=== PATIENT | male | born 1935 | race American Indian/Alaskan Native ===

== ENCOUNTER 2016-05-19 00:53 | Inpatient (IN) | payer MEDICARE ==
[2016-05-19] MEDS ORDERED: DUONEB 0.5 MG-3 MG/3 ML SOLN IH ONE (01:42)
[2016-05-19] MEDS ORDERED: BABY ASPIRIN PO ONE (01:45)
--- NOTE | 2016-05-19 01:45 | Emergency Department Report ---
HPI - General Chief Complaint: Dyspnea/Respdistress Time Seen by Provider: 05/19/16 01:22 - HPI HPI: The patient is a 80-year-old male with a significant history of asthma, CHF, and chronic A. fib, who presents for evaluation of dyspnea. The patient reports 3 days of progressive dyspnea, constant and severe for the past 12 hours , exacerbated with attempting exertion. The patient also reports associated mild nonproductive cough for the past couple of days. The patient denies fever , pressure-like chest pain, syncope, hemoptysis, palpitations, rash, unilateral leg swelling, recent immobilization. Per EMS the patient was found was seen to have low oxygen saturation on pulse oximetry. ED Past Medical Hx - Past Medical History Previous Medical History?: Yes Hx Hypertension: Yes Hx Congestive Heart Failure: Yes Hx Arthritis: Yes Additional medical history: "heart condition", chronic atrial fibrillation. gout - Surgical History Past Surgical History?: Yes Hx Open Heart Surgery: Yes - Social History Smoking Status: Former Smoker Substance Use Type: None - Medications Home Medications: Home Medications Medication Instructions Recorded Confirmed Last Taken Type Ipratropium/Albuter (Nf) 2 puff IH QID #1 inha 01/17/16 04/11/16 Unknown Rx [Combivent Inhaler] Montelukast [Singulair] 10 mg PO QPM #30 tablet 01/17/16 04/11/16 Unknown Rx Aspirin 81 mg PO DAILY 04/11/16 04/11/16 Unknown History AtorvaSTATin [Lipitor] 20 mg PO DAILY 04/11/16 04/11/16 Unknown History Dabigatran [Pradaxa] 75 mg PO BID 04/11/16 04/11/16 Unknown History Fish Oil/Borage/Flax/Om3,6,9#1 300 mg PO DAILY 04/11/16 04/11/16 Unknown History [[place] 3-6-9 1,200 mg Softgel] Fluticasone/Salmeterol [Advair 250 mcg IH BID 04/11/16 04/11/16 Unknown History Diskus 250-50 mcg] Furosemide [Lasix TAB] 40 mg PO BID 04/11/16 04/11/16 Unknown History Ipratropium (Nf) [Atrovent HFA 2 puff IH Q6HR 04/11/16 04/11/16 Unknown History 17MCG/PUFF] Lisinopril [Zestril TAB] 2.5 mg PO DAILY 04/11/16 04/11/16 Unknown History Potassium Chloride [Klor-Con] 20 meq PO DAILY 04/11/16 04/11/16 Unknown History glipiZIDE [Glucotrol] 5 mg PO QDAY 04/11/16 04/11/16 Unknown History Metoprolol [Lopressor TAB] 12.5 mg PO BID #60 tablet 04/13/16 Unknown Rx ED Review of Systems ROS: Stated complaint: OPAL Other details as noted in HPI Constitutional: denies: fever ENT: denies: throat or neck pain Respiratory: reports cough, shortness of breath Cardiovascular: denies: chest pain Endocrine: denies unexplained weight loss or gain Gastrointestinal: denies: abdominal pain, nausea Genitourinary: denies: dysuria Musculoskeletal: denies: leg swelling Skin: denies: rash Neurological: denies: headache Hematological/Lymphatic: denies: easy bleeding or easy bruising Psych: denies sadness or hopelessness Physical Exam - Physical Exam Vital Signs: Vital Signs 05/19/16 05/19/16 01:12 01:17 Pulse Rate 113 H 120 H Respiratory 18 18 Rate Blood Pressure 108/60 O2 Sat by Pulse 96 93 Oximetry Physical Exam: General: well-nourished, well-developed, no acute distress Head: Normocephalic, atraumatic Eyes: normal sclera ENT: Mucous membranes are pink and moist Neck: trachea midline, neck supple, No neck stiffness, no cervical adenopathy Respiratory: Significantly diminished breath sounds and wheezing present throughout lung field bilaterally, mild costal retractions, mild respiratory distress Cardio: S1 and S2 present, no murmurs, rubs, gallops, capillary refill is brisk Abdomen: Normoactive bowel sounds, soft abdomen, no rigidity, no guarding or rebound tenderness Musc: No pitting edema Skin: No rash Neuro: no facial drooping, normal speech Psych: Normal affect ED Course Vital Signs 05/19/16 05/19/16 01:12 01:17 Pulse Rate 113 H 120 H Respiratory 18 18 Rate Blood Pressure 108/60 O2 Sat by Pulse 96 93 Oximetry ED Medical Decision Making - Lab Data Result diagrams: 05/19/16 01:56 05/19/16 01:56 - Medical Decision Making The patient was seen and examined by myself. Prior to arrival the patient was given IV Solu-Medrol and magnesium via EMS in route. The patient is placed on a senior java programmer and continuous pulse ox. On initial evaluation, the patient was found to be in mild distress, with oxygen saturation of 89% on pulse oximetry. The patient is given a duoneb breathing treatment for asthma. Evaluation orders were placed. Chest x-ray exhibits bilateral lower lobe atelectasis and cardiomegaly, and otherwise negative for focal consolidation, for other acute cardio pulmonary disease process. Lab results reveal elevated BNP, low PO2 71 on ABG. The on- call hospitalist service was contacted. They agreed to admit the patient for further treatment and close monitoring. The ED admit order was placed. The patient was admitted in guarded condition. Critical care attestation.: If time is entered above; I have spent that time in minutes in the direct care of this critically ill patient, excluding procedure time. ED Disposition Clinical Impression: Acute exacerbation of chronic obstructive pulmonary disease, Acute respiratory failure with hypoxemia, Chronic atrial fibrillation Acute exacerbation of CHF (congestive heart failure) Qualifiers: Congestive heart failure type: systolic Qualified Code(s): I50.23 - Acute on chronic systolic (congestive) heart failure Disposition: OP ADMITTED IP TO THIS HOSP Is pt being admited?: Yes Does the pt Need Aspirin: Yes Condition: Serious Time of Disposition: 01:43
[2016-05-19 02:15] LABS: Basophils % (Auto) 0.3 % (0.0-1.8); Eosinophils % (Auto) 0.2 % (0.0-4.3); Hematocrit 41.9 % (35.5-45.6); Hemoglobin 13.8 gm/dl (11.8-15.2); Mean Corpuscular HGB Conc 33 % (32-34); Mean Corpuscular Hemoglobin 31 pg (28-32); Mean Corpuscular Volume 96 fl (84-94); Platelet Count 120 K/mm3 (140-440); Red Blood Count 4.37 M/mm3 (3.65-5.03); Red Cell Distribution Width 16.4 % (13.2-15.2); White Blood Count 10.8 K/mm3 (4.5-11.0)
[2016-05-19 02:36] LABS: BUN/Creatinine Ratio 11.53; Blood Urea Nitrogen 15 mg/dL (9-20); Calcium 8.8 mg/dL (8.4-10.2); Carbon Dioxide 29 mmol/L (22-30); Chloride 99.7 mmol/L (98-107); Glucose 154 mg/dL (75-100); Potassium 4.2 mmol/L (3.6-5.0); Sodium 143 mmol/L (137-145)
[2016-05-19 02:42] LABS: Anion Gap 19 mmol/L
[2016-05-19 02:45] LABS: ISTAT Base Excess 1; ISTAT HCO3 25.3; ISTAT PCO2 39.4 (35-45); ISTAT PH 7.415 (7.35-7.45); ISTAT PO2 71 (80-105); ISTAT SO2 94; ISTAT TCO2 26
--- NOTE | 2016-05-19 03:51 | XRay Report ---
FINAL REPORT PROCEDURE: XR CHEST 1V AP TECHNIQUE: Chest radiograph anteroposterior view. CPT 43192 HISTORY: chest pain COMPARISON: No prior studies are available for comparison. FINDINGS: Heart: Heart is enlarged. There has been open heart surgery. Mediastinum/Vessels: Normal. Lungs/Pleural space: There is suboptimal inspiration. There is bilateral lower lobe atelectasis. There are no infiltrates, effusions or pneumothoraces.. Bony thorax: No acute osseous abnormality. Life support devices: None. IMPRESSION: Heart is enlarged. There has been open heart surgery. There is suboptimal inspiration. There is bilateral lower lobe atelectasis. There are no infiltrates, effusions or pneumothoraces.. .
--- NOTE | 2016-05-19 04:06 | History and Physical Report ---
History of Present Illness Date of examination: 05/19/16 History of present illness: 80-year-old man history of CHF, hypertension, hyperlipidemia, A. fib, gout, asthma comes emergency room complaining of shortness of breath, cough productive of yellow phlegm. He also complaining of chest pain in the epigastric area which he described as sharp pain, intermittent in nature, unable to say how long her last 4, intensity 6/10, no radiation. He denies nausea vomiting, diaphoresis or palpitation Patient deniesabdominal pain, hematochezia, dysuria, frequency, focal weakness, dysarthria, fever chills, polydipsia polyuria, hot or cold intolerance, easy bruisability, or rash or bleeding from mucosal membrane, rhinorrhea, epistaxis, earache, tinnitus, blurry vision, eye discharge, anxiety, depression. Other review of systems negative PAST SURGICAL HISTORY: Open heart surgery, unclear why, Hernia repair, hemorrhoidectomy SOCIAL HISTORY: Denies alcohol, tobacco, drugs FAMILY HISTORY: Hypertension Medications and Allergies Allergies Allergy/AdvReac Type Severity Reaction Status Date / Time No Known Allergies Allergy Verified 05/19/16 01:11 Home Medications Medication Instructions Recorded Confirmed Last Taken Type Ipratropium/Albuter (Nf) 2 puff IH QID #1 inha 01/17/16 04/11/16 Unknown Rx [Combivent Inhaler] Montelukast [Singulair] 10 mg PO QPM #30 tablet 01/17/16 04/11/16 Unknown Rx Aspirin 81 mg PO DAILY 04/11/16 04/11/16 Unknown History AtorvaSTATin [Lipitor] 20 mg PO DAILY 04/11/16 04/11/16 Unknown History Dabigatran [Pradaxa] 75 mg PO BID 04/11/16 04/11/16 Unknown History Fish Oil/Borage/Flax/Om3,6,9#1 300 mg PO DAILY 04/11/16 04/11/16 Unknown History [[place] 3-6-9 1,200 mg Softgel] Fluticasone/Salmeterol [Advair 250 mcg IH BID 04/11/16 04/11/16 Unknown History Diskus 250-50 mcg] Furosemide [Lasix TAB] 40 mg PO BID 04/11/16 04/11/16 Unknown History Ipratropium (Nf) [Atrovent HFA 2 puff IH Q6HR 04/11/16 04/11/16 Unknown History 17MCG/PUFF] Lisinopril [Zestril TAB] 2.5 mg PO DAILY 04/11/16 04/11/16 Unknown History Potassium Chloride [Klor-Con] 20 meq PO DAILY 04/11/16 04/11/16 Unknown History glipiZIDE [Glucotrol] 5 mg PO QDAY 04/11/16 04/11/16 Unknown History Metoprolol [Lopressor TAB] 12.5 mg PO BID #60 tablet 04/13/16 Unknown Rx Exam - Physical Exam Narrative exam: Gen. appearance: Patient lying in bed, no apparent distress HEENT: Normocephalic, atraumatic, pupils equally round and reactive to light, extraocular movement intact, and no sclericterus,. No JVD or thyromegaly or nodule,neck supple, no carotid bruit ,mucous membranes moist, no exudate or erythema Heart: S1, S2, regular rate and rhythm Lungs: Wheezing bilaterally, breathing comfortable Abdomen: Positive bowel sounds, nontender, nondistended, no organomegaly Extremity: No edema, cyanosis, clubbing Skin: No rash, nodules, warm, dry Neuro: Oriented 3, cranial nerves II-12 intact, speech is fluent, motor and sensory intact - Constitutional Vitals: Temp Pulse Resp BP Pulse Ox 98.9 F 111 H 18 125/80 96 05/19/16 01:30 05/19/16 02:59 05/19/16 02:59 05/19/16 02:59 05/19/16 02:59 Results - Labs CBC & Chem 7: 05/19/16 01:56 05/19/16 01:56 Labs: Abnormal lab results 05/19/16 05/19/16 05/19/16 Range/Units 01:56 01:56 02:32 MCV 96 H (84-94) fl RDW 16.4 H (13.2-15.2) % Plt Count 120 L (140-440) K/mm3 Lymph % (Auto) 7.5 L (13.4-35.0) % Lymph # 0.8 L (1.2-5.4) K/mm3 Seg Neutrophils % 88.2 H (40.0-70.0) % Seg Neutrophils # 9.5 H (1.8-7.7) K/mm3 POC ABG pO2 71 L (80-105) Glucose 154 H (75-100) mg/dL - Imaging and Cardiology EKG: image reviewed Chest x-ray: image reviewed Assessment and Plan COPD exacerbation A. fib CHF, stable Hypertension Hyperlipidemia Gout Thrombocytopenia Admits medicine Start high-dose steroids, nebulizer treatments Check cardiac enzymes, consult cardiology Continue appropriate outpatient medication, start DVT prophylaxis
[2016-05-19] MEDS ORDERED: DULCOLAX PR PRN (05:19)
[2016-05-19] MEDS ORDERED: ZOFRAN IV PRN (05:19)
[2016-05-19] MEDS ORDERED: TYLENOL PO PRN (05:19)
[2016-05-19 08:25] LABS: Creatine Kinase MB 1.6 ng/mL (0.0-4.0)
[2016-05-19 08:32] LABS: Creatine Kinase 211 units/L (55-170)
[2016-05-19] MEDS ORDERED: LOVENOX SUB-Q SCH ×2 (10:00)
--- NOTE | 2016-05-19 12:55 | Consultation ---
History of Present Illness Consult date: 05/19/16 Consult reason: shortness of breath History of present illness: Patient is a 80-year-old man with multiple medical problems, who is usually followed up by Dr. Néstor Cavanaugh in [place]. He has coronary artery disease and aortic valve disease and underwent 2 with coronary artery bypass with bioprosthetic aortic valve replacement in November 2014. He has chronic atrial fibrillation and at the time of his surgery underwent closure of the left atrial appendage. He was on Coumadin for a period, but currently now on Pradaxa for oral anticoagulation. He presents to the hospital with shortness of breath. He was noted to be wheezing on presentation, with an O2 saturation of 84% on room air. There was no exertional chest pain, no palpitations or there was mild lower extremity edema. A chest x-ray reports no significant CHF or pulmonary edema. ECG done last month atrial fibrillation with nonspecific ST and T-wave abnormalities. EKG on this admission is not available for review, but telemetry strips show atrial fibrillation with a well-controlled ventricular rate. Recent left ventricular function assessment, 6 months ago the left ventricle ejection fraction was 55% with a well-functioning BiDil prosthetic aortic valve replacement. More recently, 2 months ago another echocardiogram reported an ejection fraction of 45-50%. Past History Past Medical History: atrial fib, CAD Past Surgical History: valve replacement, CABG Medications and Allergies Allergies Allergy/AdvReac Type Severity Reaction Status Date / Time No Known Allergies Allergy Verified 05/19/16 01:11 Home Medications Medication Instructions Recorded Confirmed Last Taken Type Ipratropium/Albuter (Nf) 2 puff IH QID #1 inha 01/17/16 04/11/16 Unknown Rx [Combivent Inhaler] Montelukast [Singulair] 10 mg PO QPM #30 tablet 01/17/16 04/11/16 Unknown Rx Aspirin 81 mg PO DAILY 04/11/16 04/11/16 Unknown History AtorvaSTATin [Lipitor] 20 mg PO DAILY 04/11/16 04/11/16 Unknown History Dabigatran [Pradaxa] 75 mg PO BID 04/11/16 04/11/16 Unknown History Fish Oil/Borage/Flax/Om3,6,9#1 300 mg PO DAILY 04/11/16 04/11/16 Unknown History [[place] 3-6-9 1,200 mg Softgel] Fluticasone/Salmeterol [Advair 250 mcg IH BID 04/11/16 04/11/16 Unknown History Diskus 250-50 mcg] Furosemide [Lasix TAB] 40 mg PO BID 04/11/16 04/11/16 Unknown History Ipratropium (Nf) [Atrovent HFA 2 puff IH Q6HR 04/11/16 04/11/16 Unknown History 17MCG/PUFF] Lisinopril [Zestril TAB] 2.5 mg PO DAILY 04/11/16 04/11/16 Unknown History Potassium Chloride [Klor-Con] 20 meq PO DAILY 04/11/16 04/11/16 Unknown History glipiZIDE [Glucotrol] 5 mg PO QDAY 04/11/16 04/11/16 Unknown History Metoprolol [Lopressor TAB] 12.5 mg PO BID #60 tablet 04/13/16 Unknown Rx Active Meds: Active Medications Acetaminophen (Tylenol) 650 mg PO Q4H PRN PRN Reason: Pain MILD(1-3)/Fever >100.5/DAVALOS Bisacodyl (Dulcolax) 10 mg AR QDAY PRN PRN Reason: Constipation unrelieved by MOM Magnesium Hydroxide (Milk Of Magnesia) 30 ml PO Q4H PRN PRN Reason: Constipation Methylprednisolone Sodium Succinate (Solu-Medrol) 125 mg IV Q6HR [facility] Last Admin: 05/19/16 12:19 Dose: 125 mg Ondansetron HCl (Zofran) 4 mg IV Q8H PRN PRN Reason: N/V unrelieved by Reglan Review of Systems Cardiovascular: chest pain, orthopnea, palpitations, edema, shortness of breath , no rapid/irregular heart beat, no syncope, no lightheadedness Physical Examination Vital Signs Pulse Resp BP Pulse Ox 113 H 18 108/60 96 05/19/16 01:12 05/19/16 01:12 05/19/16 01:12 05/19/16 01:12 General appearance: no acute distress HEENT: Positive: PERRL Neck: Positive: neck supple Cardiac: Positive: irregularly irregular Lungs: Positive: Decreased Breath Sounds, Rhonchi Neuro: Positive: Grossly Intact Abdomen: Positive: Soft, Active Bowel Sounds Male genitourinary: Positive: deferred Skin: Positive: Clear Extremities: Present: +1 Edema Results 05/19/16 01:56 05/19/16 01:56 Cardiac Enzymes 05/19/16 Range/Units 07:30 CK-MB (CK-2) 1.6 (0.0-4.0) ng/mL EKG interpretations - Telemetry EKG Rhythm: Atrial Fibrillation Assessment and Plan - Patient Problems (1) Acute respiratory failure with hypoxemia Current Visit: Yes Status: Acute Plan to address problem: Patient's shortness of breath and hypoxemia is likely multifactorial, representing chronic pulmonary disease, as well as fluid overload. Further cardiac workup would depend on clinical course..
[2016-05-19 14:38] LABS: Creatine Kinase 253 units/L (55-170)
[2016-05-19] MEDS: DUONEB 0.5 MG-3 MG/3 ML SOLN IH SCH (22:12)
[2016-05-20 05:46] LABS: Hematocrit 40.7 % (35.5-45.6); Hemoglobin 13.2 gm/dl (11.8-15.2); Mean Corpuscular HGB Conc 32 % (32-34); Mean Corpuscular Hemoglobin 32 pg (28-32); Mean Corpuscular Volume 97 fl (84-94); Platelet Count 129 K/mm3 (140-440); Red Cell Distribution Width 16.4 % (13.2-15.2); White Blood Count 16.5 K/mm3 (4.5-11.0)
[2016-05-20] MEDS: ROBITUSSIN DM PO PRN (06:31)
[2016-05-20 06:43] LABS: Basophils % (Manual) 0 % (0.0-1.8); Blastocytes % (Manual) 0 %; Eosinophils % (Manual) 0 % (0.0-4.3)
[2016-05-20 06:44] LABS: Diff Status Complete; Platelet Estimate Consistent w Auto; RBC Morphology Normal
[2016-05-20] MEDS ORDERED: HYDROMET PO PRN (07:34)
--- NOTE | 2016-05-20 07:49 | Admit Criteria Form ---
Admission Criteria Documentation: COPD Clinical Indications for Admission to Inpatient Care (Place 'X' for any and all applicable criteria): Admission is indicated for ANY ONE of the following (1)(2)(3): [X]I. Acute exacerbation by high-risk comorbidity (e.g., pneumonia, dysrhythmia, heart failure, pleural effusion, pneumothorax) or severe underlying COPD (e.g., steroid dependent) [X]II. Inpatient admission required rather than observation care (see Chronic Obstructive Pulmonary Disease: Observation Care) because of ANY ONE of the following: [X]a) New or pre-existing signs or symptoms of COPD (eg, dyspnea or Tachypnea at rest or with minimal activity) that persist despite outpatient and observation care treatment [X]b) New-onset hypoxemia (room air SaO2 less than 90%, PO2 less than 60 mm Hg (8.0 kPa)) that persists despite outpatient and observation care treatment [X]c) Worsening of pre-existing hypoxemia (eg, new or increased requirement for supplemental oxygen to maintain oxygenation at baseline level) that persists despite outpatient and observation care treatment, with oxygen treatment needs performable only in acute inpatient setting [ ]d) Hypercarbia (PCO2 greater than 40 mm Hg (5.3 kPa))-induced respiratory acidosis (pH less than 7.35) that persists despite outpatient and observation care treatment [ ]e) Supplemental oxygen or respiratory treatments for over 24 hours that are performable only in acute inpatient setting [ ]f) Chest tube placement with active evacuation (e.g., suction, drainage) (5) [ ]g) Other condition, treatment or monitoring requiring inpatient admission [ ]III. Planned invasive surgical or diagnostic procedures requiring acute- care hospitalization [ ]IV. Acute respiratory failure (e.g., uncompensated hypercarbia, severe hypoxemia) [ ]V. Severe comorbid condition (e.g., severe steroid myopathy, acute vertebral fracture) that has acutely worsened pulmonary function [ ]. Confusion state, lethargy, obtundation, stupor or coma Extended stay beyond goal length of stay may be needed for (31)(32): [ ]a ) Respiratory Failure. [ ]b) Severe or persisting hypoxemia or hypercarbia [ ]c) Severe or persistent dyspnea [ ]d) Comorbidities (e.g. chronic heart failure, atrial fibrillation with rapid response, pneumonia) [ ]e) Malnutrition The original [facility] content [facility] by [facility] has been revised. The portions of the content which have been revised are identified through the use of italic text or in bold, and [facility] has neither reviewed nor approved the modified material. All other unmodified content is copyright [facility]. Please see references footnoted in the original [facility] edition 2016 Admission Criteria Met: Yes
[2016-05-20] MEDS ORDERED: DUONEB 0.5 MG-3 MG/3 ML SOLN IH SCH (08:00)
[2016-05-20] MEDS: DUONEB 0.5 MG-3 MG/3 ML SOLN IH SCH ×3 (08:08→20:18)
--- NOTE | 2016-05-20 11:53 | Progress Note ---
Addendum entered and electronically signed by KELSEA SANTOS MD 05/20/16 13:39 : We will add Cardizem 60 mg by mouth every 8 hours for rate control of his atrial fibrillation. Predischarge thallium stress test for ischemia assessment, once his pulmonary status is stable. Original Note: Assessment and Plan Acute respiratory failure Diabetes Hx of coronary artery disease s/p coronary artery bypass with bioprosthetic aortic valve replacement in November 2014. Chronic atrial fibrillation on Pradaxa for oral anticoagulation. Hx of Closure of the left atrial appendage at time of surgery 2014. Subjective Date of service: 05/20/16 Interval history: Patient breathing is better. Objective Vital Signs Temp Pulse Pulse Resp Resp BP Pulse Ox 05/20/16 08:10 97 05/20/16 08:08 66 18 05/20/16 08:00 97.9 F 65 133 H 20 18 116/81 98 05/20/16 00:10 97 05/19/16 23:55 97.6 F 74 22 104/65 82 L 05/19/16 22:22 97 05/19/16 21:16 94 05/19/16 21:11 74 20 05/19/16 16:00 97.4 F L 67 20 106/72 93 - Physical Examination General: No Apparent Distress HEENT: Positive: PERRL Neck: Positive: neck supple Cardiac: Positive: irregularly irregular Lungs: Positive: Decreased Breath Sounds Neuro: Positive: Grossly Intact Abdomen: Positive: Soft, Active Bowel Sounds Skin: Positive: Clear Extremities: Present: +1 Edema - Labs and Meds Cardiac Enzymes 05/19/16 Range/Units 13:28 CK-MB (CK-2) 2.0 (0.0-4.0) ng/mL CBC 05/20/16 Range/Units 05:09 WBC 16.5 H (4.5-11.0) K/mm3 RBC 4.20 (3.65-5.03) M/mm3 Hgb 13.2 (11.8-15.2) gm/dl Hct 40.7 (35.5-45.6) % Plt Count 129 L (140-440) K/mm3 - Imaging and Cardiology EKG: image reviewed
[2016-05-20] MEDS: ZITHROMAX 500 MG in NACL 0.9% 250ML 250 ML IV SCH (12:23)
[2016-05-20] MEDS: CARDIZEM PO SCH ×2 (17:20→22:05)
[2016-05-20 17:53] LABS: ISTAT Base Excess 0; ISTAT HCO3 25.7; ISTAT PCO2 50.1 (35-45); ISTAT PH 7.318 (7.35-7.45); ISTAT PO2 302 (80-105); ISTAT SO2 100; ISTAT TCO2 27
[2016-05-21] MEDS: DUONEB 0.5 MG-3 MG/3 ML SOLN IH SCH ×4 (01:11→20:58)
[2016-05-21] MEDS ORDERED: PROVENTIL IH PRN (01:31)
--- NOTE | 2016-05-21 05:16 | Progress Note ---
Assessment and Plan - Patient Problems (1) Acute respiratory failure with hypoxia Current Visit: Yes Status: Acute Plan to address problem: Supplemental oxygen, nebs, supportive care, pulmonary toilet, incentive spirometry, NIPPV as clinically indicated. (2) Acute exacerbation of CHF (congestive heart failure) Current Visit: Yes Status: Acute Qualifiers: Congestive heart failure type: diastolic Qualified Code(s): I50.33 - Acute on chronic diastolic (congestive) heart failure Plan to address problem: Cardiology consulted, supportive care, monitor uop q shift, (3) Acute exacerbation of chronic obstructive pulmonary disease Current Visit: Yes Status: Acute Plan to address problem: Steroids, nebs, IV abx, supportive care, (4) Atrial fibrillation Current Visit: No Status: Acute Qualifiers: Atrial fibrillation type: chronic Qualified Code(s): I48.2 - Chronic atrial fibrillation Plan to address problem: continue current therapy, rate control, (5) Hypertension Current Visit: No Status: Chronic Plan to address problem: monitor bp q shift, continue current therapy (6) DVT prophylaxis Current Visit: No Status: Acute History Interval history: Pt lying in bed, Pt denies pain, Pt acknowledges continued shortness of breath. Pt symptoms have improved since admission. Pt denies fever, chills, CP, palpitations, hemoptysis. No reported nursing events. Hospitalist Physical - Constitutional Vitals: Temp Pulse Resp BP Pulse Ox 97.7 F 83 20 113/84 90 05/20/16 23:30 05/21/16 01:16 05/21/16 01:16 05/20/16 23:30 05/20/16 23:30 General appearance: Present: no acute distress - EENT Eyes: Present: PERRL ENT: hearing intact - Neck Neck: Present: supple - Respiratory Respiratory: bilateral: diminished - Cardiovascular Rhythm: regular Heart Sounds: Present: S1 & S2 - Extremities Extremities: no ischemia Extremity abnormal: edema - Abdominal General gastrointestinal: soft, non-tender, non-distended, no hepatomegaly, no splenomegaly - Integumentary Integumentary: Present: clear, warm, dry - Psychiatric Psychiatric: appropriate mood/affect, cooperative - Neurologic Neurologic: CNII-XII intact Results - Labs CBC & Chem 7: 05/20/16 05:09 05/19/16 01:56 Labs: Laboratory Last Values WBC 16.5 K/mm3 (4.5-11.0) H 05/20/16 05:09 RBC 4.20 M/mm3 (3.65-5.03) 05/20/16 05:09 Hgb 13.2 gm/dl (11.8-15.2) 05/20/16 05:09 Hct 40.7 % (35.5-45.6) 05/20/16 05:09 MCV 97 fl (84-94) H 05/20/16 05:09 MCH 32 pg (28-32) 05/20/16 05:09 MCHC 32 % (32-34) 05/20/16 05:09 RDW 16.4 % (13.2-15.2) H 05/20/16 05:09 Plt Count 129 K/mm3 (140-440) L 05/20/16 05:09 Lymph % (Auto) 7.5 % (13.4-35.0) L 05/19/16 01:56 [place] % (Auto) 3.8 % (0.0-7.3) 05/19/16 01:56 Eos % (Auto) 0.2 % (0.0-4.3) 05/19/16 01:56 Baso % (Auto) 0.3 % (0.0-1.8) 05/19/16 01:56 Lymph # 0.8 K/mm3 (1.2-5.4) L 05/19/16 01:56 [place] # 0.4 K/mm3 (0.0-0.8) 05/19/16 01:56 Eos # 0.0 K/mm3 (0.0-0.4) 05/19/16 01:56 Baso # 0.0 K/mm3 (0.0-0.1) 05/19/16 01:56 Add Manual Diff Complete 05/20/16 05:09 Total Counted 100 05/20/16 05:09 Seg Neutrophils % Paper Counter 05/20/16 05:09 Seg Neuts % (Manual) 86.0 % (40.0-70.0) H 05/20/16 05:09 Band Neutrophils % 7.0 % 05/20/16 05:09 Lymphocytes % (Manual) 3.0 % (13.4-35.0) L 05/20/16 05:09 Reactive Lymphs % (Man) 0 % 05/20/16 05:09 Monocytes % (Manual) 4.0 % (0.0-7.3) 05/20/16 05:09 Eosinophils % (Manual) 0 % (0.0-4.3) 05/20/16 05:09 Basophils % (Manual) 0 % (0.0-1.8) 05/20/16 05:09 Metamyelocytes % 0 % 05/20/16 05:09 Myelocytes % 0 % 05/20/16 05:09 Promyelocytes % 0 % 05/20/16 05:09 Blast Cells % 0 % 05/20/16 05:09 Nucleated RBC % Not Reportable 05/20/16 05:09 Seg Neutrophils # 9.5 K/mm3 (1.8-7.7) H 05/19/16 01:56 Seg Neutrophils # Man 14.2 K/mm3 (1.8-7.7) H 05/20/16 05:09 Band Neutrophils # 1.2 K/mm3 05/20/16 05:09 Lymphocytes # (Manual) 0.5 K/mm3 (1.2-5.4) L 05/20/16 05:09 Abs React Lymphs (Man) 0.0 K/mm3 05/20/16 05:09 Monocytes # (Manual) 0.7 K/mm3 (0.0-0.8) 05/20/16 05:09 Eosinophils # (Manual) 0.0 K/mm3 (0.0-0.4) 05/20/16 05:09 Basophils # (Manual) 0.0 K/mm3 (0.0-0.1) 05/20/16 05:09 Metamyelocytes # 0.0 K/mm3 05/20/16 05:09 Myelocytes # 0.0 K/mm3 05/20/16 05:09 Promyelocytes # 0.0 K/mm3 05/20/16 05:09 Blast Cells # 0.0 K/mm3 05/20/16 05:09 WBC Morphology Not Reportable 05/20/16 05:09 Hypersegmented Neuts Not Reportable 05/20/16 05:09 Hyposegmented Neuts Not Reportable 05/20/16 05:09 Hypogranular Neuts Not Reportable 05/20/16 05:09 Smudge Cells Not Reportable 05/20/16 05:09 Toxic Granulation Not Reportable 05/20/16 05:09 Toxic Vacuolation Not Reportable 05/20/16 05:09 Dohle Bodies Not Reportable 05/20/16 05:09 Pelger-Huet Anomaly Not Reportable 05/20/16 05:09 Alonso Rods Not Reportable 05/20/16 05:09 Platelet Estimate Consistent w auto 05/20/16 05:09 Clumped Platelets Not Reportable 05/20/16 05:09 Plt Clumps, EDTA Not Reportable 05/20/16 05:09 Large Platelets Not Reportable 05/20/16 05:09 Giant Platelets Not Reportable 05/20/16 05:09 Platelet Satelliting Not Reportable 05/20/16 05:09 Plt Morphology Comment Not Reportable 05/20/16 05:09 RBC Morphology Normal 05/20/16 05:09 Dimorphic RBCs Not Reportable 05/20/16 05:09 Polychromasia Not Reportable 05/20/16 05:09 Hypochromasia Not Reportable 05/20/16 05:09 Poikilocytosis Not Reportable 05/20/16 05:09 Anisocytosis Not Reportable 05/20/16 05:09 Microcytosis Not Reportable 05/20/16 05:09 Macrocytosis Not Reportable 05/20/16 05:09 Spherocytes Not Reportable 05/20/16 05:09 Pappenheimer Bodies Not Reportable 05/20/16 05:09 Sickle Cells Not Reportable 05/20/16 05:09 Target Cells Not Reportable 05/20/16 05:09 Tear Drop Cells Not Reportable 05/20/16 05:09 Ovalocytes Not Reportable 05/20/16 05:09 Helmet Cells Not Reportable 05/20/16 05:09 [place] Bodies Not Reportable 05/20/16 05:09 [place] Rings Not Reportable 05/20/16 05:09 Neo Cells Not Reportable 05/20/16 05:09 Bite Cells Not Reportable 05/20/16 05:09 Crenated Cell Not Reportable 05/20/16 05:09 Elliptocytes Not Reportable 05/20/16 05:09 Acanthocytes (Spur) Not Reportable 05/20/16 05:09 Rouleaux Not Reportable 05/20/16 05:09 Hemoglobin C Crystals Not Reportable 05/20/16 05:09 Schistocytes Not Reportable 05/20/16 05:09 Malaria parasites Not Reportable 05/20/16 05:09 [place] Bodies Not Reportable 05/20/16 05:09 Hem Pathologist Commnt No 05/20/16 05:09 POC ABG pH 7.318 (7.35-7.45) L 05/20/16 17:44 POC ABG pCO2 50.1 (35-45) H 05/20/16 17:44 POC ABG pO2 302 (80-105) H 05/20/16 17:44 POC ABG HCO3 25.7 05/20/16 17:44 POC ABG Total CO2 27 05/20/16 17:44 POC ABG O2 Sat 100 05/20/16 17:44 POC ABG Base Excess 0 05/20/16 17:44 FiO2 100 % 05/20/16 17:44 Sodium 143 mmol/L (137-145) 05/19/16 01:56 Potassium 4.2 mmol/L (3.6-5.0) 05/19/16 01:56 Chloride 99.7 mmol/L (98-107) 05/19/16 01:56 Carbon Dioxide 29 mmol/L (22-30) 05/19/16 01:56 Anion Gap 19 mmol/L 05/19/16 01:56 BUN 15 mg/dL (9-20) 05/19/16 01:56 Creatinine 1.3 mg/dL (0.8-1.5) 05/19/16 01:56 Estimated GFR > 60 ml/min 05/19/16 01:56 BUN/Creatinine Ratio 11.53 % 05/19/16 01:56 Glucose 154 mg/dL (75-100) H 05/19/16 01:56 Lactic Acid 1.1 mmol/L (0.7-2.0) 05/19/16 01:56 Calcium 8.8 mg/dL (8.4-10.2) 05/19/16 01:56 Total Creatine Kinase 253 units/L (55-170) H 05/19/16 13:28 CK-MB (CK-2) 2.0 ng/mL (0.0-4.0) 05/19/16 13:28 CK-MB (CK-2) Rel Index 0.7 (0-4) 05/19/16 13:28 Troponin T < 0.010 ng/mL (0.00-0.029) 05/19/16 13:28 NT-Pro-B Natriuret Pep 693.4 pg/mL (0-900) 05/19/16 01:56
[2016-05-21] MEDS: ROBITUSSIN DM PO PRN ×2 (05:45→13:07)
[2016-05-21] MEDS: CARDIZEM PO SCH ×3 (05:49→22:55)
--- NOTE | 2016-05-21 08:27 | Progress Note ---
Assessment and Plan Assessment and plan: (1) Acute respiratory failure with hypoxia Supplemental oxygen, nebs, supportive care, pulmonary toilet, incentive spirometry, NIPPV as clinically indicated. Oxygen need is going from 4 L to 10 L (2) Acute exacerbation of CHF (congestive heart failure) Cardiology consulted, supportive care Will have thallium stress test before D/c (3) Acute exacerbation of chronic obstructive pulmonary disease - Decrease steroid dose - Continue breathing treatments (4) Atrial fibrillation continue current therapy, rate control, (5) Hypertension monitor bp q shift, continue current therapy (6) DVT prophylaxis Current Visit: No Status: Acute History Interval history: Patient still complains shortness of breath. Hospitalist Physical - Physical exam Narrative exam: Not in cardiopulmonary distress. The patient appeared well nourished and normally developed. Vital signs as documented. Head exam is unremarkable. No scleral icterus . Neck is without jugular venous distension, thyromegaly, or carotid bruits. Lungs are clear to auscultation. Cardiac exam reveals regular rate and Rhythm. First and second heart sounds normal. No murmurs, rubs or gallops. Abdominal exam reveals normal bowel sounds, no masses, no organomegaly and no aortic enlargement. Extremities are nonedematous and both femoral and pedal pulses are normal. SYSTEMS ARCHITECTURE ANALYST: Alert and oriented 3. No focal weakness. - Constitutional Vitals: Temp Pulse Resp BP Pulse Ox 97.7 F 82 20 134/69 90 05/20/16 23:30 05/21/16 05:49 05/21/16 01:16 05/21/16 05:49 05/20/16 23:30 General appearance: Present: no acute distress Results - Labs CBC & Chem 7: 05/20/16 05:09 05/19/16 01:56 Labs: Laboratory Last Values WBC 16.5 K/mm3 (4.5-11.0) H 05/20/16 05:09 RBC 4.20 M/mm3 (3.65-5.03) 05/20/16 05:09 Hgb 13.2 gm/dl (11.8-15.2) 05/20/16 05:09 Hct 40.7 % (35.5-45.6) 05/20/16 05:09 MCV 97 fl (84-94) H 05/20/16 05:09 MCH 32 pg (28-32) 05/20/16 05:09 MCHC 32 % (32-34) 05/20/16 05:09 RDW 16.4 % (13.2-15.2) H 05/20/16 05:09 Plt Count 129 K/mm3 (140-440) L 05/20/16 05:09 Lymph % (Auto) 7.5 % (13.4-35.0) L 05/19/16 01:56 [place] % (Auto) 3.8 % (0.0-7.3) 05/19/16 01:56 Eos % (Auto) 0.2 % (0.0-4.3) 05/19/16 01:56 Baso % (Auto) 0.3 % (0.0-1.8) 05/19/16 01:56 Lymph # 0.8 K/mm3 (1.2-5.4) L 05/19/16 01:56 [place] # 0.4 K/mm3 (0.0-0.8) 05/19/16 01:56 Eos # 0.0 K/mm3 (0.0-0.4) 05/19/16 01:56 Baso # 0.0 K/mm3 (0.0-0.1) 05/19/16 01:56 Add Manual Diff Complete 05/20/16 05:09 Total Counted 100 05/20/16 05:09 Seg Neutrophils % Licensed Funeral Director 05/20/16 05:09 Seg Neuts % (Manual) 86.0 % (40.0-70.0) H 05/20/16 05:09 Band Neutrophils % 7.0 % 05/20/16 05:09 Lymphocytes % (Manual) 3.0 % (13.4-35.0) L 05/20/16 05:09 Reactive Lymphs % (Man) 0 % 05/20/16 05:09 Monocytes % (Manual) 4.0 % (0.0-7.3) 05/20/16 05:09 Eosinophils % (Manual) 0 % (0.0-4.3) 05/20/16 05:09 Basophils % (Manual) 0 % (0.0-1.8) 05/20/16 05:09 Metamyelocytes % 0 % 05/20/16 05:09 Myelocytes % 0 % 05/20/16 05:09 Promyelocytes % 0 % 05/20/16 05:09 Blast Cells % 0 % 05/20/16 05:09 Nucleated RBC % Not Reportable 05/20/16 05:09 Seg Neutrophils # 9.5 K/mm3 (1.8-7.7) H 05/19/16 01:56 Seg Neutrophils # Man 14.2 K/mm3 (1.8-7.7) H 05/20/16 05:09 Band Neutrophils # 1.2 K/mm3 05/20/16 05:09 Lymphocytes # (Manual) 0.5 K/mm3 (1.2-5.4) L 05/20/16 05:09 Abs React Lymphs (Man) 0.0 K/mm3 05/20/16 05:09 Monocytes # (Manual) 0.7 K/mm3 (0.0-0.8) 05/20/16 05:09 Eosinophils # (Manual) 0.0 K/mm3 (0.0-0.4) 05/20/16 05:09 Basophils # (Manual) 0.0 K/mm3 (0.0-0.1) 05/20/16 05:09 Metamyelocytes # 0.0 K/mm3 05/20/16 05:09 Myelocytes # 0.0 K/mm3 05/20/16 05:09 Promyelocytes # 0.0 K/mm3 05/20/16 05:09 Blast Cells # 0.0 K/mm3 05/20/16 05:09 WBC Morphology Not Reportable 05/20/16 05:09 Hypersegmented Neuts Not Reportable 05/20/16 05:09 Hyposegmented Neuts Not Reportable 05/20/16 05:09 Hypogranular Neuts Not Reportable 05/20/16 05:09 Smudge Cells Not Reportable 05/20/16 05:09 Toxic Granulation Not Reportable 05/20/16 05:09 Toxic Vacuolation Not Reportable 05/20/16 05:09 Dohle Bodies Not Reportable 05/20/16 05:09 Pelger-Huet Anomaly Not Reportable 05/20/16 05:09 Alonso Rods Not Reportable 05/20/16 05:09 Platelet Estimate Consistent w auto 05/20/16 05:09 Clumped Platelets Not Reportable 05/20/16 05:09 Plt Clumps, EDTA Not Reportable 05/20/16 05:09 Large Platelets Not Reportable 05/20/16 05:09 Giant Platelets Not Reportable 05/20/16 05:09 Platelet Satelliting Not Reportable 05/20/16 05:09 Plt Morphology Comment Not Reportable 05/20/16 05:09 RBC Morphology Normal 05/20/16 05:09 Dimorphic RBCs Not Reportable 05/20/16 05:09 Polychromasia Not Reportable 05/20/16 05:09 Hypochromasia Not Reportable 05/20/16 05:09 Poikilocytosis Not Reportable 05/20/16 05:09 Anisocytosis Not Reportable 05/20/16 05:09 Microcytosis Not Reportable 05/20/16 05:09 Macrocytosis Not Reportable 05/20/16 05:09 Spherocytes Not Reportable 05/20/16 05:09 Pappenheimer Bodies Not Reportable 05/20/16 05:09 Sickle Cells Not Reportable 05/20/16 05:09 Target Cells Not Reportable 05/20/16 05:09 Tear Drop Cells Not Reportable 05/20/16 05:09 Ovalocytes Not Reportable 05/20/16 05:09 Helmet Cells Not Reportable 05/20/16 05:09 Perez-[place] Bodies Not Reportable 05/20/16 05:09 [place] Rings Not Reportable 05/20/16 05:09 [place] Cells Not Reportable 05/20/16 05:09 Bite Cells Not Reportable 05/20/16 05:09 Crenated Cell Not Reportable 05/20/16 05:09 Elliptocytes Not Reportable 05/20/16 05:09 Acanthocytes (Spur) Not Reportable 05/20/16 05:09 Rouleaux Not Reportable 05/20/16 05:09 Hemoglobin C Crystals Not Reportable 05/20/16 05:09 Schistocytes Not Reportable 05/20/16 05:09 Malaria parasites Not Reportable 05/20/16 05:09 [place] Bodies Not Reportable 05/20/16 05:09 Hem Pathologist Commnt No 05/20/16 05:09 POC ABG pH 7.318 (7.35-7.45) L 05/20/16 17:44 POC ABG pCO2 50.1 (35-45) H 05/20/16 17:44 POC ABG pO2 302 (80-105) H 05/20/16 17:44 POC ABG HCO3 25.7 05/20/16 17:44 POC ABG Total CO2 27 05/20/16 17:44 POC ABG O2 Sat 100 05/20/16 17:44 POC ABG Base Excess 0 05/20/16 17:44 FiO2 100 % 05/20/16 17:44 Sodium 143 mmol/L (137-145) 05/19/16 01:56 Potassium 4.2 mmol/L (3.6-5.0) 05/19/16 01:56 Chloride 99.7 mmol/L (98-107) 05/19/16 01:56 Carbon Dioxide 29 mmol/L (22-30) 05/19/16 01:56 Anion Gap 19 mmol/L 05/19/16 01:56 BUN 15 mg/dL (9-20) 05/19/16 01:56 Creatinine 1.3 mg/dL (0.8-1.5) 05/19/16 01:56 Estimated GFR > 60 ml/min 05/19/16 01:56 BUN/Creatinine Ratio 11.53 % 05/19/16 01:56 Glucose 154 mg/dL (75-100) H 05/19/16 01:56 Lactic Acid 1.1 mmol/L (0.7-2.0) 05/19/16 01:56 Calcium 8.8 mg/dL (8.4-10.2) 05/19/16 01:56 Total Creatine Kinase 253 units/L (55-170) H 05/19/16 13:28 CK-MB (CK-2) 2.0 ng/mL (0.0-4.0) 05/19/16 13:28 CK-MB (CK-2) Rel Index 0.7 (0-4) 05/19/16 13:28 Troponin T < 0.010 ng/mL (0.00-0.029) 05/19/16 13:28 NT-Pro-B Natriuret Pep 693.4 pg/mL (0-900) 05/19/16 01:56 Elevated WBC and glucose due to Solu-Medrol
--- NOTE | 2016-05-21 09:08 | Progress Note ---
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 normal functioning bioprosthetic AVR, EF 55% on echo 09/2015 Chronic atrial fibrillation on Pradaxa for oral anticoagulation. Hx of Closure of the left atrial appendage at time of surgery 2014. Plan: Continue Cardizem for rate control of his atrial fibrillation. Predischarge thallium stress test for ischemia assessment, once his pulmonary status is stable. Subjective Date of service: 05/21/16 Interval history: Patient breathing is better. He denies chest pain and palpitations. Objective Vital Signs Temp Pulse Pulse Pulse Resp Resp BP 05/21/16 05:49 82 134/69 05/21/16 01:16 83 20 05/21/16 01:05 80 22 05/20/16 23:30 97.7 F 83 20 05/20/16 22:05 100 H 129/86 05/20/16 20:33 100 H 14 05/20/16 20:32 05/20/16 20:18 100 H 15 05/20/16 19:51 05/20/16 17:20 137 H 151/90 05/20/16 16:00 97.4 F L 137 H 20 05/20/16 13:39 68 18 05/20/16 09:15 98 H 18 BP Pulse Ox 05/21/16 05:49 05/21/16 01:16 05/21/16 01:05 05/20/16 23:30 113/84 90 05/20/16 22:05 05/20/16 20:33 05/20/16 20:32 93 05/20/16 20:18 05/20/16 19:51 96 05/20/16 17:20 05/20/16 16:00 151/90 05/20/16 13:39 05/20/16 09:15 - Physical Examination General: No Apparent Distress HEENT: Positive: PERRL Neck: Positive: neck supple Cardiac: Positive: irregularly irregular Lungs: Positive: Decreased Breath Sounds Neuro: Positive: Grossly Intact Extremities: Present: +1 Edema - Imaging and Cardiology EKG: image reviewed
[2016-05-21] MEDS: ZITHROMAX 500 MG in NACL 0.9% 250ML 250 ML IV SCH (12:52)
[2016-05-21] MEDS: NOVOLOG SUB-Q SCH ×2 (19:39→22:56)
[2016-05-22] MEDS: CARDIZEM PO SCH ×3 (05:30→21:35)
--- NOTE | 2016-05-22 08:12 | Progress Note ---
Assessment and Plan Assessment and plan: (1) Acute respiratory failure with hypoxia - Supplemental oxygen, nebs, supportive care, pulmonary toilet, incentive spirometry, NIPPV as clinically indicated. - Patient initially get better and now getting worse - Gave her a dose of lasix with some improvement - X-ray ordered pending the result - Pulmonary consult placed (2) Acute exacerbation of CHF (congestive heart failure) Cardiology consulted appreciated Will have thallium stress test before D/c (3) Acute exacerbation of chronic obstructive pulmonary disease - Decrease steroid dose - Continue breathing treatments - (4) Atrial fibrillation continue current therapy, rate control, (5) Hypertension monitor bp q shift, continue current therapy (6) DVT prophylaxis Current Visit: No Status: Acute Disposition Plan: continue inpatient care History Interval history: Patient complains worsening of shortness of breath. Hospitalist Physical - Physical exam Narrative exam: Not in cardiopulmonary distress. The patient appeared well nourished and normally developed. Vital signs as documented. Head exam is unremarkable. No scleral icterus . Neck is without jugular venous distension, thyromegaly, or carotid bruits. Lungs decrease air entry on posterior bibasilar area, wheezing. Cardiac exam reveals regular rate and Rhythm. First and second heart sounds normal. No murmurs, rubs or gallops. Abdominal exam reveals normal bowel sounds, no masses, no organomegaly and no aortic enlargement. Extremities are nonedematous and both femoral and pedal pulses are normal. SUSTAINABILITY SPECIALIST: Alert and oriented 3. No focal weakness. - Constitutional Vitals: Temp Pulse Resp BP Pulse Ox 97.2 F L 100 H 21 130/80 97 05/21/16 23:26 05/22/16 05:30 05/21/16 23:26 05/22/16 05:30 05/21/16 23:26 General appearance: Present: no acute distress Results - Labs CBC & Chem 7: 05/20/16 05:09 05/19/16 01:56 Labs: Laboratory Last Values WBC 16.5 K/mm3 (4.5-11.0) H 05/20/16 05:09 RBC 4.20 M/mm3 (3.65-5.03) 05/20/16 05:09 Hgb 13.2 gm/dl (11.8-15.2) 05/20/16 05:09 Hct 40.7 % (35.5-45.6) 05/20/16 05:09 MCV 97 fl (84-94) H 05/20/16 05:09 MCH 32 pg (28-32) 05/20/16 05:09 MCHC 32 % (32-34) 05/20/16 05:09 RDW 16.4 % (13.2-15.2) H 05/20/16 05:09 Plt Count 129 K/mm3 (140-440) L 05/20/16 05:09 Lymph % (Auto) 7.5 % (13.4-35.0) L 05/19/16 01:56 [place] % (Auto) 3.8 % (0.0-7.3) 05/19/16 01:56 Eos % (Auto) 0.2 % (0.0-4.3) 05/19/16 01:56 Baso % (Auto) 0.3 % (0.0-1.8) 05/19/16 01:56 Lymph # 0.8 K/mm3 (1.2-5.4) L 05/19/16 01:56 [place] # 0.4 K/mm3 (0.0-0.8) 05/19/16 01:56 Eos # 0.0 K/mm3 (0.0-0.4) 05/19/16 01:56 Baso # 0.0 K/mm3 (0.0-0.1) 05/19/16 01:56 Add Manual Diff Complete 05/20/16 05:09 Total Counted 100 05/20/16 05:09 Seg Neutrophils % Equipment Operator/Laborer 05/20/16 05:09 Seg Neuts % (Manual) 86.0 % (40.0-70.0) H 05/20/16 05:09 Band Neutrophils % 7.0 % 05/20/16 05:09 Lymphocytes % (Manual) 3.0 % (13.4-35.0) L 05/20/16 05:09 Reactive Lymphs % (Man) 0 % 05/20/16 05:09 Monocytes % (Manual) 4.0 % (0.0-7.3) 05/20/16 05:09 Eosinophils % (Manual) 0 % (0.0-4.3) 05/20/16 05:09 Basophils % (Manual) 0 % (0.0-1.8) 05/20/16 05:09 Metamyelocytes % 0 % 05/20/16 05:09 Myelocytes % 0 % 05/20/16 05:09 Promyelocytes % 0 % 05/20/16 05:09 Blast Cells % 0 % 05/20/16 05:09 Nucleated RBC % Not Reportable 05/20/16 05:09 Seg Neutrophils # 9.5 K/mm3 (1.8-7.7) H 05/19/16 01:56 Seg Neutrophils # Man 14.2 K/mm3 (1.8-7.7) H 05/20/16 05:09 Band Neutrophils # 1.2 K/mm3 05/20/16 05:09 Lymphocytes # (Manual) 0.5 K/mm3 (1.2-5.4) L 05/20/16 05:09 Abs React Lymphs (Man) 0.0 K/mm3 05/20/16 05:09 Monocytes # (Manual) 0.7 K/mm3 (0.0-0.8) 05/20/16 05:09 Eosinophils # (Manual) 0.0 K/mm3 (0.0-0.4) 05/20/16 05:09 Basophils # (Manual) 0.0 K/mm3 (0.0-0.1) 05/20/16 05:09 Metamyelocytes # 0.0 K/mm3 05/20/16 05:09 Myelocytes # 0.0 K/mm3 05/20/16 05:09 Promyelocytes # 0.0 K/mm3 05/20/16 05:09 Blast Cells # 0.0 K/mm3 05/20/16 05:09 WBC Morphology Not Reportable 05/20/16 05:09 Hypersegmented Neuts Not Reportable 05/20/16 05:09 Hyposegmented Neuts Not Reportable 05/20/16 05:09 Hypogranular Neuts Not Reportable 05/20/16 05:09 Smudge Cells Not Reportable 05/20/16 05:09 Toxic Granulation Not Reportable 05/20/16 05:09 Toxic Vacuolation Not Reportable 05/20/16 05:09 Dohle Bodies Not Reportable 05/20/16 05:09 Pelger-Huet Anomaly Not Reportable 05/20/16 05:09 Alonso Rods Not Reportable 05/20/16 05:09 Platelet Estimate Consistent w auto 05/20/16 05:09 Clumped Platelets Not Reportable 05/20/16 05:09 Plt Clumps, EDTA Not Reportable 05/20/16 05:09 Large Platelets Not Reportable 05/20/16 05:09 Giant Platelets Not Reportable 05/20/16 05:09 Platelet Satelliting Not Reportable 05/20/16 05:09 Plt Morphology Comment Not Reportable 05/20/16 05:09 RBC Morphology Normal 05/20/16 05:09 Dimorphic RBCs Not Reportable 05/20/16 05:09 Polychromasia Not Reportable 05/20/16 05:09 Hypochromasia Not Reportable 05/20/16 05:09 Poikilocytosis Not Reportable 05/20/16 05:09 Anisocytosis Not Reportable 05/20/16 05:09 Microcytosis Not Reportable 05/20/16 05:09 Macrocytosis Not Reportable 05/20/16 05:09 Spherocytes Not Reportable 05/20/16 05:09 Pappenheimer Bodies Not Reportable 05/20/16 05:09 Sickle Cells Not Reportable 05/20/16 05:09 Target Cells Not Reportable 05/20/16 05:09 Tear Drop Cells Not Reportable 05/20/16 05:09 Ovalocytes Not Reportable 05/20/16 05:09 Helmet Cells Not Reportable 05/20/16 05:09 Perez-[place] Bodies Not Reportable 05/20/16 05:09 [place] Rings Not Reportable 05/20/16 05:09 Neo Cells Not Reportable 05/20/16 05:09 Bite Cells Not Reportable 05/20/16 05:09 Crenated Cell Not Reportable 05/20/16 05:09 Elliptocytes Not Reportable 05/20/16 05:09 Acanthocytes (Spur) Not Reportable 05/20/16 05:09 Rouleaux Not Reportable 05/20/16 05:09 Hemoglobin C Crystals Not Reportable 05/20/16 05:09 Schistocytes Not Reportable 05/20/16 05:09 Malaria parasites Not Reportable 05/20/16 05:09 [place] Bodies Not Reportable 05/20/16 05:09 Hem Pathologist Commnt No 05/20/16 05:09 POC ABG pH 7.318 (7.35-7.45) L 05/20/16 17:44 POC ABG pCO2 50.1 (35-45) H 05/20/16 17:44 POC ABG pO2 302 (80-105) H 05/20/16 17:44 POC ABG HCO3 25.7 05/20/16 17:44 POC ABG Total CO2 27 05/20/16 17:44 POC ABG O2 Sat 100 05/20/16 17:44 POC ABG Base Excess 0 05/20/16 17:44 FiO2 100 % 05/20/16 17:44 Sodium 143 mmol/L (137-145) 05/19/16 01:56 Potassium 4.2 mmol/L (3.6-5.0) 05/19/16 01:56 Chloride 99.7 mmol/L (98-107) 05/19/16 01:56 Carbon Dioxide 29 mmol/L (22-30) 05/19/16 01:56 Anion Gap 19 mmol/L 05/19/16 01:56 BUN 15 mg/dL (9-20) 05/19/16 01:56 Creatinine 1.3 mg/dL (0.8-1.5) 05/19/16 01:56 Estimated GFR > 60 ml/min 05/19/16 01:56 BUN/Creatinine Ratio 11.53 % 05/19/16 01:56 Glucose 154 mg/dL (75-100) H 05/19/16 01:56 POC Glucose 157 (70-105) H 05/22/16 06:14 Lactic Acid 1.1 mmol/L (0.7-2.0) 05/19/16 01:56 Calcium 8.8 mg/dL (8.4-10.2) 05/19/16 01:56 Total Creatine Kinase 253 units/L (55-170) H 05/19/16 13:28 CK-MB (CK-2) 2.0 ng/mL (0.0-4.0) 05/19/16 13:28 CK-MB (CK-2) Rel Index 0.7 (0-4) 05/19/16 13:28 Troponin T < 0.010 ng/mL (0.00-0.029) 05/19/16 13:28 NT-Pro-B Natriuret Pep 693.4 pg/mL (0-900) 05/19/16 01:56
[2016-05-22] MEDS ORDERED: CARDIZEM PO SCH (08:36)
--- NOTE | 2016-05-22 08:36 | Progress Note ---
Assessment and Plan Acute respiratory failure secondary to COPD exacerbation Active cough, sputum production and wheezing Type II Diabetes Hx of coronary artery disease s/p coronary artery bypass with bioprosthetic aortic valve replacement in November 2014. normal functioning bioprosthetic AVR, EF 55% on echo 09/2015 Chronic atrial fibrillation on Pradaxa for oral anticoagulation. Hx of Closure of the left atrial appendage at time of surgery 2014. Abnormal ECG with evidence of RBBB, LAFB and afib Plan: Increase diltiazem to 90 mg po every 8 hours Resume anticoagulation for atrial fibrillation with pradaxa or equivalent NOACs Patient is not ready yet for an ischemic evaluation with MPI Subjective Date of service: 05/22/16 Principal diagnosis: COPD exacerbation Interval history: Patient continues to have significant chest congestion and productive cough with audible wheezing. Objective Vital Signs Temp Pulse Pulse Pulse Pulse Resp Resp 05/22/16 05:30 100 H 05/21/16 23:26 97.2 F L 102 H 21 05/21/16 22:55 120 H 05/21/16 21:00 05/21/16 20:00 76 80 22 05/21/16 19:59 05/21/16 16:30 98.1 F 90 18 05/21/16 14:57 82 05/21/16 14:35 90 20 05/21/16 14:10 86 18 05/21/16 10:00 Resp BP BP Pulse Ox 05/22/16 05:30 130/80 05/21/16 23:26 190/91 97 05/21/16 22:55 127/66 05/21/16 21:00 93 05/21/16 20:00 20 05/21/16 19:59 94 05/21/16 16:30 140/85 98 05/21/16 14:57 130/80 05/21/16 14:35 05/21/16 14:10 05/21/16 10:00 96 - Physical Examination General: No Apparent Distress HEENT: Positive: PERRL Neck: Positive: neck supple Cardiac: Positive: irregularly irregular Lungs: Positive: Wheezes, Rhonchi Neuro: Positive: Grossly Intact Abdomen: Positive: Soft, Active Bowel Sounds Skin: Positive: Clear Extremities: Present: +1 Edema - Imaging and Cardiology EKG: image reviewed
[2016-05-22] MEDS: NOVOLOG SUB-Q SCH ×5 (09:32→22:00)
[2016-05-22] MEDS: DUONEB 0.5 MG-3 MG/3 ML SOLN IH SCH ×3 (09:45→20:45)
[2016-05-22] MEDS: ZITHROMAX 500 MG in NACL 0.9% 250ML 250 ML IV SCH (11:41)
[2016-05-22] MEDS: MILK OF MAGNESIA PO PRN (11:41)
[2016-05-22] MEDS: PRADAXA PO SCH ×2 (11:41→21:34)
[2016-05-22] MEDS ORDERED: LASIX IV ONE (14:52)
--- NOTE | 2016-05-22 17:02 | XRay Report ---
FINAL REPORT PROCEDURE: XR CHEST 1V AP TECHNIQUE: Chest radiograph anteroposterior view. CPT 20945 HISTORY: SOB COMPARISON: Chest one view 05/19/2016 FINDINGS: Median sternotomy is again noted as well as cardiomegaly and central vascular congestion. Bibasilar subsegmental atelectasis with or without associated infiltrate is again seen. There is no definite pleural fluid. Suboptimal inspiratory effort is again noted as well as elevation of the left hemidiaphragm. There is no acute osseous abnormality or pneumothorax. IMPRESSION: Stable cardiomegaly and central vascular congestion. Prior cardiac surgery. Stable bibasilar airspace disease subsegmental atelectasis with or without associated infiltrate. Re-identified elevation of the left hemidiaphragm.
[2016-05-22 18:40] LABS: Hematocrit 39.1 % (35.5-45.6); Hemoglobin 12.7 gm/dl (11.8-15.2); Mean Corpuscular HGB Conc 32 % (32-34); Mean Corpuscular Hemoglobin 31 pg (28-32); Mean Corpuscular Volume 96 fl (84-94); Platelet Count 145 K/mm3 (140-440); Red Blood Count 4.07 M/mm3 (3.65-5.03); Red Cell Distribution Width 16.2 % (13.2-15.2); White Blood Count 13.9 K/mm3 (4.5-11.0)
[2016-05-22 18:57] LABS: BUN/Creatinine Ratio 28.42; Calcium 9.2 mg/dL (8.4-10.2); Chloride 94.9 mmol/L (98-107); Potassium 4.3 mmol/L (3.6-5.0)
[2016-05-22 19:21] LABS: Basophils % (Manual) 0 % (0.0-1.8); Blastocytes % (Manual) 0 %
[2016-05-22 19:22] LABS: Anisocytosis 1+; Diff Status Complete; Eosinophils % (Manual) 0 % (0.0-4.3); Platelet Estimate Consistent w Auto; Poikilocytosis 1+
--- NOTE | 2016-05-22 20:18 | Consultation ---
History of Present Illness Consult date: 05/22/16 Reason for consult: dyspnea, cough, asthma, COPD History of present illness: This is 80 year old , German male history of COPD vs Asthma admitted through emergency room with shortness of breath, wheezing and non productive cough and got progressively worse for last 12 days. Patient also has history ofHypertension, CHF and Atrial fibrillation and arthritis and Gout. Patient also Obese.Patient has history of smoking . Says stopped smoking in late senties.No alchhol or drug history. Patient has no known allergies. 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 Patient has history of Open heart surgery. Patient sleepy at this time. On O2 5 litres and O2 satuaration 95%. Past History Past Medical History: atrial fib, CAD, COPD Past Surgical History: valve replacement, CABG Medications and Allergies Allergies Allergy/AdvReac Type Severity Reaction Status Date / Time No Known Allergies Allergy Verified 05/19/16 01:11 Home Medications Medication Instructions Recorded Confirmed Last Taken Type Ipratropium/Albuter (Nf) 2 puff IH QID #1 inha 01/17/16 05/20/16 Unknown Rx [Combivent Inhaler] Montelukast [Singulair] 10 mg PO QPM #30 tablet 01/17/16 05/20/16 Unknown Rx Aspirin 81 mg PO DAILY 04/11/16 05/20/16 Unknown History AtorvaSTATin [Lipitor] 20 mg PO DAILY 04/11/16 05/20/16 Unknown History Dabigatran [Pradaxa] 75 mg PO BID 04/11/16 05/20/16 Unknown History Fish Oil/Borage/Flax/Om3,6,9#1 300 mg PO DAILY 04/11/16 05/20/16 Unknown History [Wilson 3-6-9 1,200 mg Softgel] Fluticasone/Salmeterol [Advair 250 mcg IH BID 04/11/16 05/20/16 Unknown History Diskus 250-50 mcg] Furosemide [Lasix TAB] 40 mg PO BID 04/11/16 05/20/16 Unknown History Ipratropium (Nf) [Atrovent HFA 2 puff IH Q6HR 04/11/16 05/20/16 Unknown History 17MCG/PUFF] Lisinopril [Zestril TAB] 2.5 mg PO DAILY 04/11/16 05/20/16 Unknown History Potassium Chloride [Klor-Con] 20 meq PO DAILY 04/11/16 05/20/16 Unknown History glipiZIDE [Glucotrol] 5 mg PO QDAY 04/11/16 05/20/16 Unknown History Metoprolol [Lopressor TAB] 12.5 mg PO BID #60 tablet 04/13/16 05/20/16 Unknown Rx Active Meds: Active Medications Acetaminophen (Tylenol) 650 mg PO Q4H PRN PRN Reason: Pain MILD(1-3)/Fever >100.5/DAVALOS Last Admin: 05/20/16 17:58 Dose: 650 mg Albuterol (Proventil) 2.5 mg IH Q3HRT PRN PRN Reason: Shortness Of Breath Albuterol/Ipratropium (Duoneb 0.5 Mg-3 Mg/3 Ml Soln) 1 ampul IH TIDRT [facility] Last Admin: 05/22/16 13:35 Dose: 1 ampul Azithromycin (Zithromax) 500 mg PO QDAY [facility] Bisacodyl (Dulcolax) 10 mg ND QDAY PRN PRN Reason: Constipation unrelieved by MOM Dabigatran (Pradaxa) 150 mg PO BID [facility] Last Admin: 05/22/16 11:41 Dose: 150 mg Diltiazem HCl (Cardizem) 90 mg PO Q8HR [facility] Last Admin: 05/22/16 13:14 Dose: 90 mg Guaifenesin (Robitussin Dm) 10 ml PO Q4H PRN PRN Reason: Cough Last Admin: 05/21/16 13:07 Dose: 10 ml Hydrocodone Bit/Homatropine Methylb (Hydromet) 10 ml PO Q6H PRN PRN Reason: Cough UNRELIEVED BY ROBITUSSIN Last Admin: 05/20/16 12:25 Dose: 10 ml Insulin Aspart (Novolog) 0 units SUB-Q [facility] PRN Reason: Protocol Last Admin: 05/22/16 18:03 Dose: 3 units Insulin Aspart (Novolog) 4 units SUB-Q NOW [facility] Last Admin: 05/21/16 19:39 Dose: 4 units Magnesium Hydroxide (Milk Of Magnesia) 30 ml PO Q4H PRN PRN Reason: Constipation Last Admin: 05/22/16 11:41 Dose: 30 ml Methylprednisolone Sodium Succinate (Solu-Medrol) 60 mg IV Q8HR [facility] Last Admin: 05/22/16 13:14 Dose: 60 mg Ondansetron HCl (Zofran) 4 mg IV Q8H PRN PRN Reason: N/V unrelieved by Regjaved Review of Systems All systems: negative Physical Examination Vital signs: Vital Signs Pulse Resp BP Pulse Ox 113 H 18 108/60 96 05/19/16 01:12 05/19/16 01:12 05/19/16 01:12 05/19/16 01:12 General appearance: asleep, other (Mild shortness of breath at rest.) Eyes: non-icteric ENT: oropharynx moist Neck: supple, no JVD Ascultation: Bilateral: wheezes, rhonchi Cardiovascular: regular rate and rhythm Gastrointestinal: normoactive bowel sounds, soft, non-tender Integumentary: normal Extremities: no cyanosis, no edema Musculoskeletal: no deformities Gait: other (Can not assess now.) non-focal exam, pupils equal and round, CN II-XII normal depressed Results - Laboratory Findings CBC and BMP: 05/22/16 18:11 05/22/16 18:11 ABG POC ABG pH 7.318 (7.35-7.45) L 05/20/16 17:44 POC ABG pCO2 50.1 (35-45) H 05/20/16 17:44 POC ABG pO2 302 (80-105) H 05/20/16 17:44 POC ABG HCO3 25.7 05/20/16 17:44 POC ABG Total CO2 27 05/20/16 17:44 POC ABG O2 Sat 100 05/20/16 17:44 Abnormal lab findings: Abnormal Labs 05/19/16 05/19/16 05/20/16 07:30 13:28 05:09 WBC 16.5 H MCV 97 H RDW 16.4 H Plt Count 129 L Seg Neuts % (Manual) 86.0 H Lymphocytes % (Manual) 3.0 L Seg Neutrophils # Man 14.2 H Lymphocytes # (Manual) 0.5 L POC ABG pH POC ABG pCO2 POC ABG pO2 Chloride BUN Creatinine Glucose POC Glucose Total Creatine Kinase 211 H 253 H 05/20/16 05/21/16 05/21/16 17:44 12:09 17:05 WBC MCV RDW Plt Count Seg Neuts % (Manual) Lymphocytes % (Manual) Seg Neutrophils # Man Lymphocytes # (Manual) POC ABG pH 7.318 L POC ABG pCO2 50.1 H POC ABG pO2 302 H Chloride BUN Creatinine Glucose POC Glucose 251 H 291 H Total Creatine Kinase 05/21/16 05/22/16 05/22/16 20:43 06:14 12:22 WBC MCV RDW Plt Count Seg Neuts % (Manual) Lymphocytes % (Manual) Seg Neutrophils # Man Lymphocytes # (Manual) POC ABG pH POC ABG pCO2 POC ABG pO2 Chloride BUN Creatinine Glucose POC Glucose 205 H 157 H 257 H Total Creatine Kinase 05/22/16 05/22/16 05/22/16 16:20 18:11 18:11 WBC 13.9 H MCV 96 H RDW 16.2 H Plt Count Seg Neuts % (Manual) 95.0 H Lymphocytes % (Manual) 3.0 L Seg Neutrophils # Man 13.2 H Lymphocytes # (Manual) 0.4 L POC ABG pH POC ABG pCO2 POC ABG pO2 Chloride 94.9 L BUN 54 H Creatinine 1.9 H Glucose 234 H POC Glucose 201 H Total Creatine Kinase - Diagnostic Findings Chest x-ray: report reviewed (Stable cardiomegaly with central vascular congestion,Bibasilar atelectasis with or with out infiltrates, elevated left hemidiaphragham.), image reviewed Assessment and Plan This is 80 year old , German male history of COPD vs Asthma admitted through emergency room with shortness of breath, wheezing and non productive cough and got progressively worse for last 12 days. Patient also has history ofHypertension, CHF and Atrial fibrillation and arthritis and Gout. Patient also Obese.Patient has history of smoking . Says stopped smoking in late senti.No alchhol or drug history. Patient has no known allergies. 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 Patient has history of Open heart surgery. Patient sleepy at this time. On O2 5 litres and O2 satuaration 95%. - Patient Problems (1) Acute exacerbation of chronic obstructive pulmonary disease Current Visit: Yes Status: Acute Plan to address problem: Continue albuterol/atrovent aerosol treatments q 6 hours. Continue solumedral. Continue zithomax. (2) Acute respiratory failure with hypercapnia Current Visit: Yes Status: Acute Plan to address problem: BIPAP 20/8, rate 20 FIO2 30% Albuterol/atrovent aerosol treatments q 6 hours. Continue solumedral Continue Pradaxa. Recommend po Protonix. (3) Acute exacerbation of CHF (congestive heart failure) Current Visit: Yes Status: Acute Qualifiers: Congestive heart failure type: diastolic Qualified Code(s): I50.33 - Acute on chronic diastolic (congestive) heart failure Plan to address problem: Mangement as per cardiology. (4) Chronic atrial fibrillation Current Visit: Yes Status: Acute Plan to address problem: Patient is on pradaxa and cardiezem. Management as per cardiology. (5) Sleep apnea, obstructive Current Visit: Yes Status: Acute Plan to address problem: Patient sleepy, has snoring and daytime sleepiness.Patient may have sleep apnea. Recommend sleep study as out patient.
[2016-05-23] MEDS: CARDIZEM PO SCH ×3 (05:05→21:01)
[2016-05-23 05:43] LABS: Hematocrit 38.9 % (35.5-45.6); Hemoglobin 12.5 gm/dl (11.8-15.2); Mean Corpuscular HGB Conc 32 % (32-34); Mean Corpuscular Hemoglobin 31 pg (28-32); Mean Corpuscular Volume 95 fl (84-94); Platelet Count 141 K/mm3 (140-440); Red Blood Count 4.09 M/mm3 (3.65-5.03); Red Cell Distribution Width 16.1 % (13.2-15.2); White Blood Count 13.3 K/mm3 (4.5-11.0)
[2016-05-23 05:59] LABS: BUN/Creatinine Ratio 33.33; Calcium 8.9 mg/dL (8.4-10.2); Potassium 4.7 mmol/L (3.6-5.0)
[2016-05-23 08:34] LABS: Basophils % (Manual) 0 % (0.0-1.8); Blastocytes % (Manual) 0 %; Eosinophils % (Manual) 0 % (0.0-4.3)
[2016-05-23 08:35] LABS: Anisocytosis 1+; Diff Status Complete; Poikilocytosis Few
[2016-05-23] MEDS: DUONEB 0.5 MG-3 MG/3 ML SOLN IH SCH ×3 (09:15→21:32)
[2016-05-23] MEDS: NOVOLOG SUB-Q SCH ×5 (09:49→23:00)
[2016-05-23] MEDS: ZITHROMAX PO SCH (09:55)
[2016-05-23] MEDS: PROTONIX PO SCH (09:56)
[2016-05-23] MEDS: PRADAXA PO SCH ×2 (09:56→21:01)
--- NOTE | 2016-05-23 10:00 | Progress Note ---
Assessment and Plan - Patient Problems (1) Acute exacerbation of CHF (congestive heart failure) Current Visit: Yes Status: Acute Qualifiers: Congestive heart failure type: diastolic Qualified Code(s): I50.33 - Acute on chronic diastolic (congestive) heart failure Plan to address problem: - continue gentle diuresis - w/up per cardiology otherwise (2) Acute exacerbation of chronic obstructive pulmonary disease Current Visit: Yes Status: Acute Plan to address problem: - continue sytemic steroids - add Long acting bronchodilators - continue BIPAP qhs (& prn daytime) - supplemental oxygen to keep sats > 90% - empiric AB's (3) Acute respiratory failure with hypoxemia Current Visit: Yes Status: Acute Plan to address problem: - as above (4) Chronic atrial fibrillation Current Visit: Yes Status: Acute Plan to address problem: - continue anticoagulation - rate control per cardiology (5) Obesity Current Visit: Yes Status: Acute Plan to address problem: - outpatient PSG - continue BIPAP while asleep Subjective Date of service: 05/23/16 Principal diagnosis: COPD exacerbation Interval history: Seen and examined at bedside; 24 hour events reviewed; nursing and respiratory care staff consulted; no adverse overnight events reported to me; sitting up in bed; still SOB and hypoxemic; denies acute chest pains; no emesis or overt aspiration and states that he is tolerating BIPAP Objective Vital Signs - 12hr 05/22/16 05/23/16 05/23/16 23:12 00:00 05:05 Temperature 97.4 F L Pulse Rate 100 H Pulse Rate [ Anterior Bilateral Throughout] Pulse Rate [ Bilateral Throughout] Pulse Rate [ 124 H Right Radial] Respiratory 21 26 H Rate Respiratory Rate [Anterior Bilateral Throughout] Respiratory Rate [Bilateral Throughout] Blood Pressure 130/80 Blood Pressure 122/72 [Right Arm] O2 Sat by Pulse 91 97 Oximetry 05/23/16 05/23/16 05/23/16 07:30 09:15 09:19 Temperature 97.5 F L Pulse Rate Pulse Rate [ 63 Anterior Bilateral Throughout] Pulse Rate [ Bilateral Throughout] Pulse Rate [ 71 Right Radial] Respiratory 20 Rate Respiratory 18 Rate [Anterior Bilateral Throughout] Respiratory Rate [Bilateral Throughout] Blood Pressure Blood Pressure 119/77 [Right Arm] O2 Sat by Pulse 96 93 Oximetry 05/23/16 09:28 Temperature Pulse Rate Pulse Rate [ 96 H Anterior Bilateral Throughout] Pulse Rate [ 96 H Bilateral Throughout] Pulse Rate [ Right Radial] Respiratory Rate Respiratory 20 Rate [Anterior Bilateral Throughout] Respiratory 20 Rate [Bilateral Throughout] Blood Pressure Blood Pressure [Right Arm] O2 Sat by Pulse Oximetry Constitutional: no acute distress, alert Eyes: non-icteric ENT: oropharynx moist Neck: supple, no JVD Effort: mildly labored Ascultation: Bilateral: wheezes (expiratory), rhonchi Cardiovascular: regular rate and rhythm Gastrointestinal: normoactive bowel sounds, soft, non-tender, non-distended Integumentary: normal Extremities: no cyanosis, no edema, pulses normal, no ischemia or petechiae Neurologic: non-focal exam, pupils equal and round, CN II-XII normal, motor strength normal and Psychiatric: mood appropriate, affect normal, other (? dementia element) CBC and BMP: 05/23/16 05:10 05/23/16 05:10 ABG, PT/INR, D-dimer: ABG POC ABG pH 7.318 (7.35-7.45) L 05/20/16 17:44 POC ABG pCO2 50.1 (35-45) H 05/20/16 17:44 POC ABG pO2 302 (80-105) H 05/20/16 17:44 POC ABG HCO3 25.7 05/20/16 17:44 POC ABG Total CO2 27 05/20/16 17:44 POC ABG O2 Sat 100 05/20/16 17:44 Abnormal lab findings: Abnormal Labs 05/19/16 05/19/16 05/20/16 07:30 13:28 05:09 WBC 16.5 H MCV 97 H RDW 16.4 H Plt Count 129 L Seg Neuts % (Manual) 86.0 H Lymphocytes % (Manual) 3.0 L Seg Neutrophils # Man 14.2 H Lymphocytes # (Manual) 0.5 L POC ABG pH POC ABG pCO2 POC ABG pO2 Chloride BUN Creatinine Glucose POC Glucose Total Creatine Kinase 211 H 253 H 05/20/16 05/21/16 05/21/16 17:44 12:09 17:05 WBC MCV RDW Plt Count Seg Neuts % (Manual) Lymphocytes % (Manual) Seg Neutrophils # Man Lymphocytes # (Manual) POC ABG pH 7.318 L POC ABG pCO2 50.1 H POC ABG pO2 302 H Chloride BUN Creatinine Glucose POC Glucose 251 H 291 H Total Creatine Kinase 05/21/16 05/22/16 05/22/16 20:43 06:14 12:22 WBC MCV RDW Plt Count Seg Neuts % (Manual) Lymphocytes % (Manual) Seg Neutrophils # Man Lymphocytes # (Manual) POC ABG pH POC ABG pCO2 POC ABG pO2 Chloride BUN Creatinine Glucose POC Glucose 205 H 157 H 257 H Total Creatine Kinase 05/22/16 05/22/16 05/22/16 16:20 18:11 18:11 WBC 13.9 H MCV 96 H RDW 16.2 H Plt Count Seg Neuts % (Manual) 95.0 H Lymphocytes % (Manual) 3.0 L Seg Neutrophils # Man 13.2 H Lymphocytes # (Manual) 0.4 L POC ABG pH POC ABG pCO2 POC ABG pO2 Chloride 94.9 L BUN 54 H Creatinine 1.9 H Glucose 234 H POC Glucose 201 H Total Creatine Kinase 05/22/16 05/23/16 05/23/16 21:04 05:10 05:10 WBC 13.3 H MCV 95 H RDW 16.1 H Plt Count Seg Neuts % (Manual) 86.0 H Lymphocytes % (Manual) 2.0 L Seg Neutrophils # Man 11.4 H Lymphocytes # (Manual) 0.3 L POC ABG pH POC ABG pCO2 POC ABG pO2 Chloride 97.0 L BUN 50 H Creatinine Glucose 224 H POC Glucose 222 H Total Creatine Kinase 05/23/16 06:20 WBC MCV RDW Plt Count Seg Neuts % (Manual) Lymphocytes % (Manual) Seg Neutrophils # Man Lymphocytes # (Manual) POC ABG pH POC ABG pCO2 POC ABG pO2 Chloride BUN Creatinine Glucose POC Glucose 270 H Total Creatine Kinase Chest x-ray: image reviewed
--- NOTE | 2016-05-23 10:08 | Progress Note ---
Assessment and Plan Acute respiratory failure secondary to COPD exacerbation Active cough, sputum production and wheezing Type II Diabetes Hx of coronary artery disease s/p coronary artery bypass with bioprosthetic aortic valve replacement in November 2014. normal functioning bioprosthetic AVR, EF 55% on echo 09/2015 Chronic atrial fibrillation on Pradaxa for oral anticoagulation Hx of Closure of the left atrial appendage at time of surgery 2014. Abnormal ECG with evidence of RBBB, LAFB and afib Plan: Continue Cardizem for rate control of his atrial fibrillation. Subjective Date of service: 05/23/16 Principal diagnosis: COPD exacerbation Interval history: Patient denies chest pain and palpitations. Still with shortness of breath and wheezing. Objective Vital Signs Temp Pulse Pulse Pulse Pulse Pulse Resp 05/23/16 09:28 96 H 96 H 05/23/16 09:19 05/23/16 09:15 63 05/23/16 07:30 97.5 F L 71 20 05/23/16 05:05 100 H 05/23/16 00:00 26 H 05/22/16 23:12 97.4 F L 124 H 21 05/22/16 21:35 100 H 05/22/16 21:09 89 05/22/16 20:50 05/22/16 20:46 106 H 05/22/16 19:41 92 H 20 05/22/16 15:46 97.5 F L 109 H 20 05/22/16 14:00 05/22/16 13:56 107 H 107 H 107 H 05/22/16 13:35 106 H Resp Resp Resp BP BP Pulse Ox 05/23/16 09:28 20 20 05/23/16 09:19 93 05/23/16 09:15 18 05/23/16 07:30 119/77 96 05/23/16 05:05 130/80 05/23/16 00:00 97 05/22/16 23:12 122/72 91 05/22/16 21:35 130/80 05/22/16 21:09 18 05/22/16 20:50 94 05/22/16 20:46 16 05/22/16 19:41 05/22/16 15:46 170/86 05/22/16 14:00 100 05/22/16 13:56 24 24 24 05/22/16 13:35 24 - Physical Examination General: No Apparent Distress HEENT: Positive: PERRL Neck: Positive: neck supple Cardiac: Positive: irregularly irregular Lungs: Positive: Wheezes Neuro: Positive: Grossly Intact Extremities: Present: +1 Edema - Labs and Meds CBC 05/22/16 05/23/16 Range/Units 18:11 05:10 WBC 13.9 H 13.3 H (4.5-11.0) K/mm3 RBC 4.07 4.09 (3.65-5.03) M/mm3 Hgb 12.7 12.5 (11.8-15.2) gm/dl Hct 39.1 38.9 (35.5-45.6) % Plt Count 145 141 (140-440) K/mm3 Comprehensive Metabolic Panel 05/22/16 05/23/16 Range/Units 18:11 05:10 Sodium 141 138 (137-145) mmol/L Potassium 4.3 4.7 (3.6-5.0) mmol/L Chloride 94.9 L 97.0 L (98-107) mmol/L Carbon Dioxide 26 24 (22-30) mmol/L BUN 54 H 50 H (9-20) mg/dL Creatinine 1.9 H 1.5 (0.8-1.5) mg/dL Glucose 234 H 224 H (75-100) mg/dL Calcium 9.2 8.9 (8.4-10.2) mg/dL - Imaging and Cardiology EKG: image reviewed
[2016-05-23 13:25] LABS: ISTAT Base Excess 3; ISTAT HCO3 28.1; ISTAT PH 7.375 (7.35-7.45); ISTAT PO2 119 (80-105); ISTAT SO2 99; ISTAT TCO2 30
--- NOTE | 2016-05-23 13:31 | Progress Note ---
Assessment and Plan Assessment and plan: (1) Acute respiratory failure with hypoxia - Supplemental oxygen, nebs, supportive care, pulmonary toilet, incentive spirometry, NIPPV as clinically indicated. - Lasix 40mg Iv Qdaily - X-ray ordered pending the result - Pulmonary consult appreciated (2) Acute exacerbation of CHF (congestive heart failure) Cardiology consulted appreciated Will have thallium stress test before D/c (3) Acute exacerbation of chronic obstructive pulmonary disease - Decrease steroid dose - Continue breathing treatments - (4) Atrial fibrillation continue current therapy, rate control, (5) Hypertension monitor bp q shift, continue current therapy (6) DVT prophylaxis Current Visit: No Status: Acute History Interval history: Patient still complains of shortness of breath. Hospitalist Physical - Physical exam Narrative exam: Not in cardiopulmonary distress. The patient appeared well nourished and normally developed. Vital signs as documented. Head exam is unremarkable. No scleral icterus . Neck is without jugular venous distension, thyromegaly, or carotid bruits. Lungs decrease air entry on posterior bibasilar area, wheezing all over the chest. Cardiac exam reveals regular rate and Rhythm. First and second heart sounds normal. No murmurs, rubs or gallops. Abdominal exam reveals normal bowel sounds, no masses, no organomegaly and no aortic enlargement. Extremities are nonedematous and both femoral and pedal pulses are normal. DRESS DESIGNER: Alert and oriented 3. No focal weakness. - Constitutional Vitals: Temp Pulse Resp BP Pulse Ox 97.5 F L 96 H 20 119/77 93 05/23/16 07:30 05/23/16 09:28 05/23/16 09:28 05/23/16 07:30 05/23/16 09:19 General appearance: Present: no acute distress Results - Labs CBC & Chem 7: 05/23/16 05:10 05/23/16 05:10 Labs: Laboratory Last Values WBC 13.3 K/mm3 (4.5-11.0) H 05/23/16 05:10 RBC 4.09 M/mm3 (3.65-5.03) 05/23/16 05:10 Hgb 12.5 gm/dl (11.8-15.2) 05/23/16 05:10 Hct 38.9 % (35.5-45.6) 05/23/16 05:10 MCV 95 fl (84-94) H 05/23/16 05:10 MCH 31 pg (28-32) 05/23/16 05:10 MCHC 32 % (32-34) 05/23/16 05:10 RDW 16.1 % (13.2-15.2) H 05/23/16 05:10 Plt Count 141 K/mm3 (140-440) 05/23/16 05:10 Lymph % (Auto) 7.5 % (13.4-35.0) L 05/19/16 01:56 [place] % (Auto) 3.8 % (0.0-7.3) 05/19/16 01:56 Eos % (Auto) 0.2 % (0.0-4.3) 05/19/16 01:56 Baso % (Auto) 0.3 % (0.0-1.8) 05/19/16 01:56 Lymph # 0.8 K/mm3 (1.2-5.4) L 05/19/16 01:56 [place] # 0.4 K/mm3 (0.0-0.8) 05/19/16 01:56 Eos # 0.0 K/mm3 (0.0-0.4) 05/19/16 01:56 Baso # 0.0 K/mm3 (0.0-0.1) 05/19/16 01:56 Add Manual Diff Complete 05/23/16 05:10 Total Counted 100 05/23/16 05:10 Seg Neutrophils % Heating Repair Technician 05/23/16 05:10 Seg Neuts % (Manual) 86.0 % (40.0-70.0) H 05/23/16 05:10 Band Neutrophils % 8.0 % 05/23/16 05:10 Lymphocytes % (Manual) 2.0 % (13.4-35.0) L 05/23/16 05:10 Reactive Lymphs % (Man) 0 % 05/23/16 05:10 Monocytes % (Manual) 4.0 % (0.0-7.3) 05/23/16 05:10 Eosinophils % (Manual) 0 % (0.0-4.3) 05/23/16 05:10 Basophils % (Manual) 0 % (0.0-1.8) 05/23/16 05:10 Metamyelocytes % 0 % 05/23/16 05:10 Myelocytes % 0 % 05/23/16 05:10 Promyelocytes % 0 % 05/23/16 05:10 Blast Cells % 0 % 05/23/16 05:10 Nucleated RBC % Not Reportable 05/23/16 05:10 Seg Neutrophils # 9.5 K/mm3 (1.8-7.7) H 05/19/16 01:56 Seg Neutrophils # Man 11.4 K/mm3 (1.8-7.7) H 05/23/16 05:10 Band Neutrophils # 1.1 K/mm3 05/23/16 05:10 Lymphocytes # (Manual) 0.3 K/mm3 (1.2-5.4) L 05/23/16 05:10 Abs React Lymphs (Man) 0.0 K/mm3 05/23/16 05:10 Monocytes # (Manual) 0.5 K/mm3 (0.0-0.8) 05/23/16 05:10 Eosinophils # (Manual) 0.0 K/mm3 (0.0-0.4) 05/23/16 05:10 Basophils # (Manual) 0.0 K/mm3 (0.0-0.1) 05/23/16 05:10 Metamyelocytes # 0.0 K/mm3 05/23/16 05:10 Myelocytes # 0.0 K/mm3 05/23/16 05:10 Promyelocytes # 0.0 K/mm3 05/23/16 05:10 Blast Cells # 0.0 K/mm3 05/23/16 05:10 WBC Morphology Not Reportable 05/23/16 05:10 Hypersegmented Neuts Not Reportable 05/23/16 05:10 Hyposegmented Neuts Not Reportable 05/23/16 05:10 Hypogranular Neuts Not Reportable 05/23/16 05:10 Smudge Cells Not Reportable 05/23/16 05:10 Toxic Granulation Not Reportable 05/23/16 05:10 Toxic Vacuolation Not Reportable 05/23/16 05:10 Dohle Bodies Not Reportable 05/23/16 05:10 Pelger-Huet Anomaly Not Reportable 05/23/16 05:10 Alonso Rods Not Reportable 05/23/16 05:10 Platelet Estimate Not Reportable 05/23/16 05:10 Clumped Platelets Not Reportable 05/23/16 05:10 Plt Clumps, EDTA Not Reportable 05/23/16 05:10 Large Platelets Not Reportable 05/23/16 05:10 Giant Platelets Not Reportable 05/23/16 05:10 Platelet Satelliting Not Reportable 05/23/16 05:10 Plt Morphology Comment Not Reportable 05/23/16 05:10 RBC Morphology Not Reportable 05/23/16 05:10 Dimorphic RBCs Not Reportable 05/23/16 05:10 Polychromasia Not Reportable 05/23/16 05:10 Hypochromasia Not Reportable 05/23/16 05:10 Poikilocytosis Few 05/23/16 05:10 Anisocytosis 1+ 05/23/16 05:10 Microcytosis Not Reportable 05/23/16 05:10 Macrocytosis Not Reportable 05/23/16 05:10 Spherocytes Not Reportable 05/23/16 05:10 Pappenheimer Bodies Not Reportable 05/23/16 05:10 Sickle Cells Not Reportable 05/23/16 05:10 Target Cells Not Reportable 05/23/16 05:10 Tear Drop Cells Not Reportable 05/23/16 05:10 Ovalocytes Not Reportable 05/23/16 05:10 Helmet Cells Not Reportable 05/23/16 05:10 [place] Bodies Not Reportable 05/23/16 05:10 [place] Rings Not Reportable 05/23/16 05:10 [place] Cells Not Reportable 05/23/16 05:10 Bite Cells Not Reportable 05/23/16 05:10 Crenated Cell Not Reportable 05/23/16 05:10 Elliptocytes Not Reportable 05/23/16 05:10 Acanthocytes (Spur) Not Reportable 05/23/16 05:10 Rouleaux Not Reportable 05/23/16 05:10 Hemoglobin C Crystals Not Reportable 05/23/16 05:10 Schistocytes Not Reportable 05/23/16 05:10 Malaria parasites Not Reportable 05/23/16 05:10 [place] Bodies Not Reportable 05/23/16 05:10 Hem Pathologist Commnt No 05/23/16 05:10 POC ABG pH 7.375 (7.35-7.45) 05/23/16 12:05 POC ABG pCO2 48.0 (35-45) H 05/23/16 12:05 POC ABG pO2 119 (80-105) H 05/23/16 12:05 POC ABG HCO3 28.1 05/23/16 12:05 POC ABG Total CO2 30 05/23/16 12:05 POC ABG O2 Sat 99 05/23/16 12:05 POC ABG Base Excess 3 05/23/16 12:05 FiO2 36 % 05/23/16 12:05 Sodium 138 mmol/L (137-145) 05/23/16 05:10 Potassium 4.7 mmol/L (3.6-5.0) 05/23/16 05:10 Chloride 97.0 mmol/L (98-107) L 05/23/16 05:10 Carbon Dioxide 24 mmol/L (22-30) 05/23/16 05:10 Anion Gap 22 mmol/L 05/23/16 05:10 BUN 50 mg/dL (9-20) H 05/23/16 05:10 Creatinine 1.5 mg/dL (0.8-1.5) 05/23/16 05:10 Estimated GFR 55 ml/min 05/23/16 05:10 BUN/Creatinine Ratio 33.33 % 05/23/16 05:10 Glucose 224 mg/dL (75-100) H 05/23/16 05:10 POC Glucose 224 (70-105) H 05/23/16 12:32 Lactic Acid 1.1 mmol/L (0.7-2.0) 05/19/16 01:56 Calcium 8.9 mg/dL (8.4-10.2) 05/23/16 05:10 Total Creatine Kinase 253 units/L (55-170) H 05/19/16 13:28 CK-MB (CK-2) 2.0 ng/mL (0.0-4.0) 05/19/16 13:28 CK-MB (CK-2) Rel Index 0.7 (0-4) 05/19/16 13:28 Troponin T < 0.010 ng/mL (0.00-0.029) 05/19/16 13:28 NT-Pro-B Natriuret Pep 693.4 pg/mL (0-900) 05/19/16 01:56
[2016-05-23] MEDS: LASIX IV SCH (15:03)
[2016-05-24] MEDS: CARDIZEM PO SCH ×3 (05:25→23:19)
[2016-05-24] MEDS: DUONEB 0.5 MG-3 MG/3 ML SOLN IH SCH ×3 (08:26→20:12)
[2016-05-24] MEDS: BROVANA NEBU IH SCH ×2 (08:26→20:12)
[2016-05-24] MEDS: NOVOLOG SUB-Q SCH ×5 (08:51→23:53)
--- NOTE | 2016-05-24 09:08 | Discharge Summary ---
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 pl call 05/22/16 16:05 Occupational Therapy Evaluate and Treat [CONS] Routine Comment: Reason For Exam: deconditioning and placement Physical Therapy Evaluation and Treat [CONS] Routine Comment: Reason For Exam: deconditioning and placement 05/22/16 16:28 Consult to Physician [CONS] Routine Consulting Provider: MARSHA DAWSON Reason For Exam: copd exacerbation, worsened after improvement Place consult to:: Notified:: answering service Phone number called:: [phone] Was contact made?: No If yes, spoke with:: answering machine Time called:: 17:25 Primary care physician: MANAGER SUPPORT SERVICES Hospitalization Reason for admission: COPD exacerbation Condition: Serious Hospital course: Patientb was admitted for COPD/ CHF exacerbation and patient was treated appropriately and patient is currently feeling much better and at his base line. Patient said he is using BIPAP at home . He said he has enough medications at home and refills. He will schedule to see his PCP. Disposition: DISCHARGED TO HOME OR SELFCARE Time spent for discharge: 31 minutes - Discharge Diagnoses (1) Acute exacerbation of CHF (congestive heart failure) Status: Acute Qualifiers: Congestive heart failure type: diastolic Qualified Code(s): I50.33 - Acute on chronic diastolic (congestive) heart failure (2) Acute exacerbation of chronic obstructive pulmonary disease Status: Acute (3) Acute respiratory failure with hypercapnia Status: Acute (4) Acute respiratory failure with hypoxemia Status: Acute (5) Chronic atrial fibrillation Status: Acute (6) Sleep apnea, obstructive Status: Acute Core Measure Documentation - Palliative Care Palliative Care/ Comfort Measures: Not Applicable - Core Measures Any of the following diagnoses?: none Exam - Physical Exam Narrative exam: Not in cardiopulmonary distress. The patient appeared well nourished and normally developed. Vital signs as documented. Head exam is unremarkable. No scleral icterus . Neck is without jugular venous distension, thyromegaly, or carotid bruits. Lungs wheezing all over the chest. Cardiac exam reveals regular rate and Rhythm. First and second heart sounds normal. No murmurs, rubs or gallops. Abdominal exam reveals normal bowel sounds, no masses, no organomegaly and no aortic enlargement. Extremities are nonedematous and both femoral and pedal pulses are normal. GRADES 1 6 TUTOR: Alert and oriented 3. No focal weakness. - Constitutional Vitals: Temp Pulse Resp BP Pulse Ox 97.0 F L 116 H 20 113/81 98 05/24/16 00:00 05/24/16 08:37 05/24/16 08:37 05/24/16 00:00 05/24/16 08:27 Plan Activity: no restrictions Diet: low fat, low cholesterol, low salt Follow up with: PRIMARY CARE,MD [Primary Care Provider] - 7 Days Prescriptions: Prednisone [predniSONE 10 mg (6-Day Pack, 21 Tabs)] 10 mg PO .TAPER #1 tab.ds.pk
--- NOTE | 2016-05-24 10:17 | Progress Note ---
Assessment and Plan - Patient Problems (1) Acute exacerbation of CHF (congestive heart failure) Current Visit: Yes Status: Acute Qualifiers: Congestive heart failure type: diastolic Qualified Code(s): I50.33 - Acute on chronic diastolic (congestive) heart failure (2) Acute exacerbation of chronic obstructive pulmonary disease Current Visit: Yes Status: Acute (3) Acute respiratory failure with hypoxemia Current Visit: Yes Status: Acute (4) Chronic atrial fibrillation Current Visit: Yes Status: Acute (5) Obesity Current Visit: Yes Status: Acute Subjective Date of service: 05/24/16 Principal diagnosis: COPD exacerbation Interval history: Seen and examined at bedside; 24 hour events reviewed; nursing and respiratory care staff consulted; no adverse overnight events reported to me; Objective Vital Signs - 12hr 05/24/16 05/24/16 05/24/16 00:00 05:25 08:26 Temperature 97.0 F L Pulse Rate 96 H Pulse Rate [ 111 H Anterior Bilateral Throughout] Pulse Rate [ 102 H Right Radial] Respiratory 22 Rate Respiratory 20 Rate [Anterior Bilateral Throughout] Blood Pressure 113/81 [Right Arm] O2 Sat by Pulse 95 Oximetry 05/24/16 05/24/16 05/24/16 08:27 08:37 09:00 Temperature 97 F L Pulse Rate Pulse Rate [ 116 H Anterior Bilateral Throughout] Pulse Rate [ 113 H Right Radial] Respiratory 20 Rate Respiratory 20 Rate [Anterior Bilateral Throughout] Blood Pressure 194/101 [Right Arm] O2 Sat by Pulse 98 86 Oximetry Constitutional: no acute distress, alert Eyes: non-icteric ENT: oropharynx moist Neck: supple, no JVD Effort: mildly labored Ascultation: Bilateral: wheezes (expiratory), rhonchi Cardiovascular: regular rate and rhythm Gastrointestinal: normoactive bowel sounds, soft, non-tender, non-distended Integumentary: normal Extremities: no cyanosis, no edema, pulses normal, no ischemia or petechiae Neurologic: non-focal exam, pupils equal and round, CN II-XII normal, motor strength normal and Psychiatric: mood appropriate, affect normal, other (? dementia element) CBC and BMP: 05/23/16 05:10 05/23/16 05:10 ABG, PT/INR, D-dimer: ABG POC ABG pH 7.375 (7.35-7.45) 05/23/16 12:05 POC ABG pCO2 48.0 (35-45) H 05/23/16 12:05 POC ABG pO2 119 (80-105) H 05/23/16 12:05 POC ABG HCO3 28.1 05/23/16 12:05 POC ABG Total CO2 30 05/23/16 12:05 POC ABG O2 Sat 99 05/23/16 12:05 Abnormal lab findings: Abnormal Labs 05/19/16 05/19/16 05/20/16 07:30 13:28 05:09 WBC 16.5 H MCV 97 H RDW 16.4 H Plt Count 129 L Seg Neuts % (Manual) 86.0 H Lymphocytes % (Manual) 3.0 L Seg Neutrophils # Man 14.2 H Lymphocytes # (Manual) 0.5 L POC ABG pH POC ABG pCO2 POC ABG pO2 Chloride BUN Creatinine Glucose POC Glucose Total Creatine Kinase 211 H 253 H 05/20/16 05/21/16 05/21/16 17:44 12:09 17:05 WBC MCV RDW Plt Count Seg Neuts % (Manual) Lymphocytes % (Manual) Seg Neutrophils # Man Lymphocytes # (Manual) POC ABG pH 7.318 L POC ABG pCO2 50.1 H POC ABG pO2 302 H Chloride BUN Creatinine Glucose POC Glucose 251 H 291 H Total Creatine Kinase 05/21/16 05/22/16 05/22/16 20:43 06:14 12:22 WBC MCV RDW Plt Count Seg Neuts % (Manual) Lymphocytes % (Manual) Seg Neutrophils # Man Lymphocytes # (Manual) POC ABG pH POC ABG pCO2 POC ABG pO2 Chloride BUN Creatinine Glucose POC Glucose 205 H 157 H 257 H Total Creatine Kinase 05/22/16 05/22/16 05/22/16 16:20 18:11 18:11 WBC 13.9 H MCV 96 H RDW 16.2 H Plt Count Seg Neuts % (Manual) 95.0 H Lymphocytes % (Manual) 3.0 L Seg Neutrophils # Man 13.2 H Lymphocytes # (Manual) 0.4 L POC ABG pH POC ABG pCO2 POC ABG pO2 Chloride 94.9 L BUN 54 H Creatinine 1.9 H Glucose 234 H POC Glucose 201 H Total Creatine Kinase 05/22/16 05/23/16 05/23/16 21:04 05:10 05:10 WBC 13.3 H MCV 95 H RDW 16.1 H Plt Count Seg Neuts % (Manual) 86.0 H Lymphocytes % (Manual) 2.0 L Seg Neutrophils # Man 11.4 H Lymphocytes # (Manual) 0.3 L POC ABG pH POC ABG pCO2 POC ABG pO2 Chloride 97.0 L BUN 50 H Creatinine Glucose 224 H POC Glucose 222 H Total Creatine Kinase 05/23/16 05/23/16 05/23/16 06:20 12:05 12:32 WBC MCV RDW Plt Count Seg Neuts % (Manual) Lymphocytes % (Manual) Seg Neutrophils # Man Lymphocytes # (Manual) POC ABG pH POC ABG pCO2 48.0 H POC ABG pO2 119 H Chloride BUN Creatinine Glucose POC Glucose 270 H 224 H Total Creatine Kinase 05/23/16 05/24/16 22:33 06:45 WBC MCV RDW Plt Count Seg Neuts % (Manual) Lymphocytes % (Manual) Seg Neutrophils # Man Lymphocytes # (Manual) POC ABG pH POC ABG pCO2 POC ABG pO2 Chloride BUN Creatinine Glucose POC Glucose 220 H 175 H Total Creatine Kinase
[2016-05-24] MEDS: LASIX IV SCH ×2 (10:41→18:13)
[2016-05-24] MEDS: ZITHROMAX PO SCH (10:46)
[2016-05-24] MEDS: PROTONIX PO SCH (10:47)
[2016-05-24] MEDS: PRADAXA PO SCH ×2 (10:50→23:20)
--- NOTE | 2016-05-24 15:25 | Progress Note ---
Assessment and Plan Assessment and plan: (1) Acute respiratory failure with hypoxia - Supplemental oxygen, nebs, supportive care, pulmonary toilet, incentive spirometry, NIPPV as clinically indicated. - Lasix 40mg IV BID - Pulmonary congestion - Pulmonary consult appreciated (2) Acute exacerbation of CHF (congestive heart failure) Cardiology consulted appreciated Recommended conservative cardiac management (3) Acute exacerbation of chronic obstructive pulmonary disease - Decrease steroid dose 60 mg IV 3 times a day - Continue breathing treatments - (4) Atrial fibrillation continue current therapy, rate control, (5) Hypertension monitor bp q shift, continue current therapy (6) DVT prophylaxis Current Visit: No Status: Acute - Patient Problems (1) Acute exacerbation of CHF (congestive heart failure) Current Visit: Yes Status: Acute Qualifiers: Congestive heart failure type: diastolic Qualified Code(s): I50.33 - Acute on chronic diastolic (congestive) heart failure (2) Acute exacerbation of chronic obstructive pulmonary disease Current Visit: Yes Status: Acute (3) Acute respiratory failure with hypercapnia Current Visit: Yes Status: Acute (4) Acute respiratory failure with hypoxemia Current Visit: Yes Status: Acute (5) Chronic atrial fibrillation Current Visit: Yes Status: Acute (6) Sleep apnea, obstructive Current Visit: Yes Status: Acute History Interval history: Patient still complains of shortness of breath. When he is off oxygen he desaturated. Hospitalist Physical - Physical exam Narrative exam: Not in cardiopulmonary distress. The patient appeared well nourished and normally developed. Vital signs as documented. Head exam is unremarkable. No scleral icterus . Neck is without jugular venous distension, thyromegaly, or carotid bruits. Lungs wheezing all over the chest. Cardiac exam reveals regular rate and Rhythm. First and second heart sounds normal. No murmurs, rubs or gallops. Abdominal exam reveals normal bowel sounds, no masses, no organomegaly and no aortic enlargement. Extremities are nonedematous and both femoral and pedal pulses are normal. FISHING CAPTAIN: Alert and oriented 3. No focal weakness. - Constitutional Vitals: Temp Pulse Resp BP Pulse Ox 97.4 F L 105 H 17 152/85 99 05/24/16 12:06 05/24/16 14:19 05/24/16 14:19 05/24/16 12:06 05/24/16 12:06 General appearance: Present: no acute distress Results - Labs CBC & Chem 7: 05/23/16 05:10 05/23/16 05:10 Labs: Laboratory Last Values WBC 13.3 K/mm3 (4.5-11.0) H 05/23/16 05:10 RBC 4.09 M/mm3 (3.65-5.03) 05/23/16 05:10 Hgb 12.5 gm/dl (11.8-15.2) 05/23/16 05:10 Hct 38.9 % (35.5-45.6) 05/23/16 05:10 MCV 95 fl (84-94) H 05/23/16 05:10 MCH 31 pg (28-32) 05/23/16 05:10 MCHC 32 % (32-34) 05/23/16 05:10 RDW 16.1 % (13.2-15.2) H 05/23/16 05:10 Plt Count 141 K/mm3 (140-440) 05/23/16 05:10 Lymph % (Auto) 7.5 % (13.4-35.0) L 05/19/16 01:56 [place] % (Auto) 3.8 % (0.0-7.3) 05/19/16 01:56 Eos % (Auto) 0.2 % (0.0-4.3) 05/19/16 01:56 Baso % (Auto) 0.3 % (0.0-1.8) 05/19/16 01:56 Lymph # 0.8 K/mm3 (1.2-5.4) L 05/19/16 01:56 [place] # 0.4 K/mm3 (0.0-0.8) 05/19/16 01:56 Eos # 0.0 K/mm3 (0.0-0.4) 05/19/16 01:56 Baso # 0.0 K/mm3 (0.0-0.1) 05/19/16 01:56 Add Manual Diff Complete 05/23/16 05:10 Total Counted 100 05/23/16 05:10 Seg Neutrophils % Supervisor Livestock [employer] 05/23/16 05:10 Seg Neuts % (Manual) 86.0 % (40.0-70.0) H 05/23/16 05:10 Band Neutrophils % 8.0 % 05/23/16 05:10 Lymphocytes % (Manual) 2.0 % (13.4-35.0) L 05/23/16 05:10 Reactive Lymphs % (Man) 0 % 05/23/16 05:10 Monocytes % (Manual) 4.0 % (0.0-7.3) 05/23/16 05:10 Eosinophils % (Manual) 0 % (0.0-4.3) 05/23/16 05:10 Basophils % (Manual) 0 % (0.0-1.8) 05/23/16 05:10 Metamyelocytes % 0 % 05/23/16 05:10 Myelocytes % 0 % 05/23/16 05:10 Promyelocytes % 0 % 05/23/16 05:10 Blast Cells % 0 % 05/23/16 05:10 Nucleated RBC % Not Reportable 05/23/16 05:10 Seg Neutrophils # 9.5 K/mm3 (1.8-7.7) H 05/19/16 01:56 Seg Neutrophils # Man 11.4 K/mm3 (1.8-7.7) H 05/23/16 05:10 Band Neutrophils # 1.1 K/mm3 05/23/16 05:10 Lymphocytes # (Manual) 0.3 K/mm3 (1.2-5.4) L 05/23/16 05:10 Abs React Lymphs (Man) 0.0 K/mm3 05/23/16 05:10 Monocytes # (Manual) 0.5 K/mm3 (0.0-0.8) 05/23/16 05:10 Eosinophils # (Manual) 0.0 K/mm3 (0.0-0.4) 05/23/16 05:10 Basophils # (Manual) 0.0 K/mm3 (0.0-0.1) 05/23/16 05:10 Metamyelocytes # 0.0 K/mm3 05/23/16 05:10 Myelocytes # 0.0 K/mm3 05/23/16 05:10 Promyelocytes # 0.0 K/mm3 05/23/16 05:10 Blast Cells # 0.0 K/mm3 05/23/16 05:10 WBC Morphology Not Reportable 05/23/16 05:10 Hypersegmented Neuts Not Reportable 05/23/16 05:10 Hyposegmented Neuts Not Reportable 05/23/16 05:10 Hypogranular Neuts Not Reportable 05/23/16 05:10 Smudge Cells Not Reportable 05/23/16 05:10 Toxic Granulation Not Reportable 05/23/16 05:10 Toxic Vacuolation Not Reportable 05/23/16 05:10 Dohle Bodies Not Reportable 05/23/16 05:10 Pelger-Huet Anomaly Not Reportable 05/23/16 05:10 Alonso Rods Not Reportable 05/23/16 05:10 Platelet Estimate Not Reportable 05/23/16 05:10 Clumped Platelets Not Reportable 05/23/16 05:10 Plt Clumps, EDTA Not Reportable 05/23/16 05:10 Large Platelets Not Reportable 05/23/16 05:10 Giant Platelets Not Reportable 05/23/16 05:10 Platelet Satelliting Not Reportable 05/23/16 05:10 Plt Morphology Comment Not Reportable 05/23/16 05:10 RBC Morphology Not Reportable 05/23/16 05:10 Dimorphic RBCs Not Reportable 05/23/16 05:10 Polychromasia Not Reportable 05/23/16 05:10 Hypochromasia Not Reportable 05/23/16 05:10 Poikilocytosis Few 05/23/16 05:10 Anisocytosis 1+ 05/23/16 05:10 Microcytosis Not Reportable 05/23/16 05:10 Macrocytosis Not Reportable 05/23/16 05:10 Spherocytes Not Reportable 05/23/16 05:10 Pappenheimer Bodies Not Reportable 05/23/16 05:10 Sickle Cells Not Reportable 05/23/16 05:10 Target Cells Not Reportable 05/23/16 05:10 Tear Drop Cells Not Reportable 05/23/16 05:10 Ovalocytes Not Reportable 05/23/16 05:10 Helmet Cells Not Reportable 05/23/16 05:10 [place] Bodies Not Reportable 05/23/16 05:10 [place] Rings Not Reportable 05/23/16 05:10 [place] Cells Not Reportable 05/23/16 05:10 Bite Cells Not Reportable 05/23/16 05:10 Crenated Cell Not Reportable 05/23/16 05:10 Elliptocytes Not Reportable 05/23/16 05:10 Acanthocytes (Spur) Not Reportable 05/23/16 05:10 Rouleaux Not Reportable 05/23/16 05:10 Hemoglobin C Crystals Not Reportable 05/23/16 05:10 Schistocytes Not Reportable 05/23/16 05:10 Malaria parasites Not Reportable 05/23/16 05:10 [place] Bodies Not Reportable 05/23/16 05:10 Hem Pathologist Commnt No 05/23/16 05:10 POC ABG pH 7.375 (7.35-7.45) 05/23/16 12:05 POC ABG pCO2 48.0 (35-45) H 05/23/16 12:05 POC ABG pO2 119 (80-105) H 05/23/16 12:05 POC ABG HCO3 28.1 05/23/16 12:05 POC ABG Total CO2 30 05/23/16 12:05 POC ABG O2 Sat 99 05/23/16 12:05 POC ABG Base Excess 3 05/23/16 12:05 FiO2 36 % 05/23/16 12:05 Sodium 138 mmol/L (137-145) 05/23/16 05:10 Potassium 4.7 mmol/L (3.6-5.0) 05/23/16 05:10 Chloride 97.0 mmol/L (98-107) L 05/23/16 05:10 Carbon Dioxide 24 mmol/L (22-30) 05/23/16 05:10 Anion Gap 22 mmol/L 05/23/16 05:10 BUN 50 mg/dL (9-20) H 05/23/16 05:10 Creatinine 1.5 mg/dL (0.8-1.5) 05/23/16 05:10 Estimated GFR 55 ml/min 05/23/16 05:10 BUN/Creatinine Ratio 33.33 % 05/23/16 05:10 Glucose 224 mg/dL (75-100) H 05/23/16 05:10 POC Glucose 234 (70-105) H 05/24/16 11:14 Lactic Acid 1.1 mmol/L (0.7-2.0) 05/19/16 01:56 Calcium 8.9 mg/dL (8.4-10.2) 05/23/16 05:10 Total Creatine Kinase 253 units/L (55-170) H 05/19/16 13:28 CK-MB (CK-2) 2.0 ng/mL (0.0-4.0) 05/19/16 13:28 CK-MB (CK-2) Rel Index 0.7 (0-4) 05/19/16 13:28 Troponin T < 0.010 ng/mL (0.00-0.029) 05/19/16 13:28 NT-Pro-B Natriuret Pep 693.4 pg/mL (0-900) 05/19/16 01:56
[2016-05-24] MEDS ORDERED: LEVAQUIN PO SCH ×2 (16:00→17:00)
[2016-05-25 05:49] LABS: Hematocrit 39.8 % (35.5-45.6); Mean Corpuscular HGB Conc 33 % (32-34); Mean Corpuscular Hemoglobin 31 pg (28-32); Mean Corpuscular Volume 96 fl (84-94); Platelet Count 139 K/mm3 (140-440); Red Blood Count 4.13 M/mm3 (3.65-5.03); Red Cell Distribution Width 15.7 % (13.2-15.2); White Blood Count 14.9 K/mm3 (4.5-11.0)
[2016-05-25] MEDS: CARDIZEM PO SCH ×3 (05:56→21:35)
[2016-05-25] MEDS: LASIX IV SCH ×2 (05:56→17:41)
[2016-05-25] MEDS: MILK OF MAGNESIA PO PRN (06:04)
[2016-05-25 06:09] LABS: Calcium 8.8 mg/dL (8.4-10.2); Chloride 96.7 mmol/L (98-107); Potassium 4.6 mmol/L (3.6-5.0)
[2016-05-25 07:51] LABS: Basophils % (Manual) 0 % (0.0-1.8); Blastocytes % (Manual) 0 %; Eosinophils % (Manual) 0 % (0.0-4.3)
[2016-05-25 07:54] LABS: Anisocytosis 1+; Elliptocytes 1+
[2016-05-25 07:55] LABS: Toxic Vacuolation Rare
[2016-05-25 07:56] LABS: Diff Status Complete; Large Platelets Rare
[2016-05-25] MEDS: NOVOLOG SUB-Q SCH ×5 (08:28→23:46)
[2016-05-25] MEDS: BROVANA NEBU IH SCH ×2 (09:55→20:28)
[2016-05-25] MEDS: DUONEB 0.5 MG-3 MG/3 ML SOLN IH SCH ×3 (09:55→20:28)
[2016-05-25] MEDS: PROTONIX PO SCH (10:18)
[2016-05-25] MEDS: PRADAXA PO SCH ×2 (10:18→21:35)
--- NOTE | 2016-05-25 11:08 | Progress Note ---
Assessment and Plan Acute respiratory failure secondary to COPD exacerbation Active cough, sputum production and wheezing Type II Diabetes Hx of coronary artery disease s/p coronary artery bypass with bioprosthetic aortic valve replacement in November 2014. normal functioning bioprosthetic AVR, EF 55% on echo 09/2015 Chronic atrial fibrillation on Pradaxa for oral anticoagulation Hx of Closure of the left atrial appendage at time of surgery 2014. Abnormal ECG with evidence of RBBB, LAFB and afib Plan: Continue current cardiac treatment - cardiac status is stable. We will sign off - please call with questions or concerns. Subjective Date of service: 05/25/16 Principal diagnosis: COPD exacerbation Interval history: Continues to have dyspnea and cough Objective Vital Signs Temp Pulse Pulse Pulse Resp Resp BP 05/25/16 10:05 82 16 05/25/16 10:00 05/25/16 09:55 74 16 05/25/16 07:00 97.1 F L 102 H 22 05/25/16 05:56 107 H 122/76 05/25/16 01:15 113 H 18 05/25/16 00:00 97.4 F L 113 H 20 05/24/16 23:19 113 H 148/75 05/24/16 22:36 81 22 05/24/16 20:30 81 18 05/24/16 20:12 70 18 05/24/16 20:00 97.5 F L 78 20 05/24/16 18:26 126/91 05/24/16 16:00 97.8 F 121 H 20 05/24/16 14:19 105 H 17 05/24/16 14:08 104 H 16 05/24/16 12:09 117 H 20 05/24/16 12:06 97.4 F L 111 H 22 05/24/16 11:56 117 H 20 BP Pulse Ox 05/25/16 10:05 05/25/16 10:00 91 05/25/16 09:55 05/25/16 07:00 115/81 96 05/25/16 05:56 05/25/16 01:15 05/25/16 00:00 148/75 99 05/24/16 23:19 05/24/16 22:36 94 05/24/16 20:30 05/24/16 20:12 97 05/24/16 20:00 135/81 94 05/24/16 18:26 05/24/16 16:00 126/91 96 05/24/16 14:19 05/24/16 14:08 05/24/16 12:09 05/24/16 12:06 152/85 99 05/24/16 11:56 - Physical Examination General: No Apparent Distress HEENT: Positive: PERRL Neck: Positive: neck supple Cardiac: Positive: irregularly irregular Lungs: Positive: Wheezes Neuro: Positive: Grossly Intact Abdomen: Positive: Soft, Active Bowel Sounds Skin: Positive: Clear Extremities: Present: +1 Edema - Labs and Meds CBC 05/25/16 Range/Units 05:13 WBC 14.9 H (4.5-11.0) K/mm3 RBC 4.13 (3.65-5.03) M/mm3 Hgb 13.0 (11.8-15.2) gm/dl Hct 39.8 (35.5-45.6) % Plt Count 139 L (140-440) K/mm3 Comprehensive Metabolic Panel 05/25/16 Range/Units 05:13 Sodium 140 (137-145) mmol/L Potassium 4.6 (3.6-5.0) mmol/L Chloride 96.7 L (98-107) mmol/L Carbon Dioxide 29 (22-30) mmol/L BUN 48 H (9-20) mg/dL Creatinine 1.5 (0.8-1.5) mg/dL Glucose 212 H (75-100) mg/dL Calcium 8.8 (8.4-10.2) mg/dL - Imaging and Cardiology EKG: image reviewed
--- NOTE | 2016-05-25 11:36 | Progress Note ---
Assessment and Plan This is 80 year old , [place] male history of COPD vs Asthma admitted through emergency room with shortness of breath, wheezing and non productive cough and got progressively worse for last 12 days. Patient also has history ofHypertension, CHF and Atrial fibrillation and arthritis and Gout. Patient also Obese.Patient has history of smoking . Says stopped smoking in late senti.No alchhol or drug history. Patient has no known allergies. 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 Patient has history of Open heart surgery. Patient sleepy at this time. On O2 5 litres and O2 satuaration 95%. 05/25/16 Patient still having cough, mostly on productive. patient resting on 3 litres O2.O2 satuaration 91%. No acute respiratory distress. Repeating blood gases on room air. If PO2 is low, Patient is candidate for Home O2.Patient can go to rehab from pulmonary point of view. Once patient discharged from rehab. Patient can come to my office for pulmonary follow up as out patient. - Patient Problems (1) Acute exacerbation of chronic obstructive pulmonary disease Current Visit: Yes Status: Acute Plan to address problem: Continue albuterol/atrovent aerosol treatments q 6 hours. Continue solumedral. Continue zithomax. 05/25/16 Zithromax discontiued. Patient is on levaquine. Continue solumedral Continue albuterol/atrovent aerosol treatments. (2) Acute respiratory failure with hypercapnia Current Visit: Yes Status: Acute Plan to address problem: BIPAP 20/8, rate 20 FIO2 30% Albuterol/atrovent aerosol treatments q 6 hours. Continue solumedral Continue Pradaxa. Recommend po Protonix. 05/25/16 Continue O2 3 litres via nasal canula. ABGs on room air. Continue solumedral Continue Pradaxa. Continue protonix. (3) Acute exacerbation of CHF (congestive heart failure) Current Visit: Yes Status: Acute Qualifiers: Congestive heart failure type: diastolic Qualified Code(s): I50.33 - Acute on chronic diastolic (congestive) heart failure Plan to address problem: Mangement as per cardiology. (4) Chronic atrial fibrillation Current Visit: Yes Status: Acute Plan to address problem: Patient is on pradaxa and cardiezem. Management as per cardiology. (5) Sleep apnea, obstructive Current Visit: Yes Status: Acute Plan to address problem: Patient sleepy, has snoring and daytime sleepiness.Patient may have sleep apnea. Recommend sleep study as out patient. Subjective Date of service: 05/25/16 Principal diagnosis: COPD exacerbation Interval history: Patient still having cough, mostly on productive. patient resting on 3 litres O2.O2 satuaration 91%. No acute respiratory distress at rest. Repeating blood gases on room air. If PO2 is low, He is candidate for home O2. Patient can go to rehab pulmonary point of view. Once patient discharged from rehab. Patient can come to my office for pulmonary follow up as out patient. Objective Vital Signs - 12hr 05/25/16 05/25/16 05/25/16 00:00 01:15 05:56 Temperature 97.4 F L Pulse Rate 107 H Pulse Rate [ Anterior Bilateral Throughout] Pulse Rate [ 113 H 113 H Right Radial] Respiratory 20 18 Rate Respiratory Rate [Anterior Bilateral Throughout] Blood Pressure 122/76 Blood Pressure 148/75 [Right Arm] O2 Sat by Pulse 99 Oximetry 05/25/16 05/25/16 05/25/16 07:00 09:55 10:00 Temperature 97.1 F L Pulse Rate Pulse Rate [ 74 Anterior Bilateral Throughout] Pulse Rate [ 102 H Right Radial] Respiratory 22 Rate Respiratory 16 Rate [Anterior Bilateral Throughout] Blood Pressure Blood Pressure 115/81 [Right Arm] O2 Sat by Pulse 96 91 Oximetry 05/25/16 10:05 Temperature Pulse Rate Pulse Rate [ 82 Anterior Bilateral Throughout] Pulse Rate [ Right Radial] Respiratory Rate Respiratory 16 Rate [Anterior Bilateral Throughout] Blood Pressure Blood Pressure [Right Arm] O2 Sat by Pulse Oximetry Constitutional: no acute distress, lethargic, appears uncomfortable Eyes: non-icteric ENT: oropharynx moist Neck: supple, no JVD Effort: mildly labored Ascultation: Bilateral: wheezes (expiratory), rhonchi Cardiovascular: regular rate and rhythm Gastrointestinal: normoactive bowel sounds, soft, non-tender, non-distended Integumentary: normal Extremities: no cyanosis, no edema, pulses normal, no ischemia or petechiae Neurologic: non-focal exam, pupils equal and round, CN II-XII normal, motor strength normal and Psychiatric: mood appropriate, affect normal, other (? dementia element) CBC and BMP: 05/25/16 05:13 05/25/16 05:13 ABG, PT/INR, D-dimer: ABG POC ABG pH 7.375 (7.35-7.45) 05/23/16 12:05 POC ABG pCO2 48.0 (35-45) H 05/23/16 12:05 POC ABG pO2 119 (80-105) H 05/23/16 12:05 POC ABG HCO3 28.1 05/23/16 12:05 POC ABG Total CO2 30 05/23/16 12:05 POC ABG O2 Sat 99 05/23/16 12:05 Abnormal lab findings: Abnormal Labs 05/19/16 05/19/16 05/20/16 07:30 13:28 05:09 WBC 16.5 H MCV 97 H RDW 16.4 H Plt Count 129 L Seg Neuts % (Manual) 86.0 H Lymphocytes % (Manual) 3.0 L Seg Neutrophils # Man 14.2 H Lymphocytes # (Manual) 0.5 L Monocytes # (Manual) POC ABG pH POC ABG pCO2 POC ABG pO2 Chloride BUN Creatinine Glucose POC Glucose Total Creatine Kinase 211 H 253 H 05/20/16 05/21/16 05/21/16 17:44 12:09 17:05 WBC MCV RDW Plt Count Seg Neuts % (Manual) Lymphocytes % (Manual) Seg Neutrophils # Man Lymphocytes # (Manual) Monocytes # (Manual) POC ABG pH 7.318 L POC ABG pCO2 50.1 H POC ABG pO2 302 H Chloride BUN Creatinine Glucose POC Glucose 251 H 291 H Total Creatine Kinase 05/21/16 05/22/16 05/22/16 20:43 06:14 12:22 WBC MCV RDW Plt Count Seg Neuts % (Manual) Lymphocytes % (Manual) Seg Neutrophils # Man Lymphocytes # (Manual) Monocytes # (Manual) POC ABG pH POC ABG pCO2 POC ABG pO2 Chloride BUN Creatinine Glucose POC Glucose 205 H 157 H 257 H Total Creatine Kinase 05/22/16 05/22/16 05/22/16 16:20 18:11 18:11 WBC 13.9 H MCV 96 H RDW 16.2 H Plt Count Seg Neuts % (Manual) 95.0 H Lymphocytes % (Manual) 3.0 L Seg Neutrophils # Man 13.2 H Lymphocytes # (Manual) 0.4 L Monocytes # (Manual) POC ABG pH POC ABG pCO2 POC ABG pO2 Chloride 94.9 L BUN 54 H Creatinine 1.9 H Glucose 234 H POC Glucose 201 H Total Creatine Kinase 05/22/16 05/23/16 05/23/16 21:04 05:10 05:10 WBC 13.3 H MCV 95 H RDW 16.1 H Plt Count Seg Neuts % (Manual) 86.0 H Lymphocytes % (Manual) 2.0 L Seg Neutrophils # Man 11.4 H Lymphocytes # (Manual) 0.3 L Monocytes # (Manual) POC ABG pH POC ABG pCO2 POC ABG pO2 Chloride 97.0 L BUN 50 H Creatinine Glucose 224 H POC Glucose 222 H Total Creatine Kinase 05/23/16 05/23/16 05/23/16 06:20 12:05 12:32 WBC MCV RDW Plt Count Seg Neuts % (Manual) Lymphocytes % (Manual) Seg Neutrophils # Man Lymphocytes # (Manual) Monocytes # (Manual) POC ABG pH POC ABG pCO2 48.0 H POC ABG pO2 119 H Chloride BUN Creatinine Glucose POC Glucose 270 H 224 H Total Creatine Kinase 05/23/16 05/24/16 05/24/16 22:33 06:45 11:14 WBC MCV RDW Plt Count Seg Neuts % (Manual) Lymphocytes % (Manual) Seg Neutrophils # Man Lymphocytes # (Manual) Monocytes # (Manual) POC ABG pH POC ABG pCO2 POC ABG pO2 Chloride BUN Creatinine Glucose POC Glucose 220 H 175 H 234 H Total Creatine Kinase 05/24/16 05/24/16 05/25/16 16:06 21:25 05:13 WBC 14.9 H MCV 96 H RDW 15.7 H Plt Count 139 L Seg Neuts % (Manual) 79.0 H Lymphocytes % (Manual) 5.0 L Seg Neutrophils # Man 11.8 H Lymphocytes # (Manual) 0.7 L Monocytes # (Manual) 0.9 H POC ABG pH POC ABG pCO2 POC ABG pO2 Chloride BUN Creatinine Glucose POC Glucose 290 H 266 H Total Creatine Kinase 05/25/16 05/25/16 05:13 06:21 WBC MCV RDW Plt Count Seg Neuts % (Manual) Lymphocytes % (Manual) Seg Neutrophils # Man Lymphocytes # (Manual) Monocytes # (Manual) POC ABG pH POC ABG pCO2 POC ABG pO2 Chloride 96.7 L BUN 48 H Creatinine Glucose 212 H POC Glucose 179 H Total Creatine Kinase
[2016-05-25] MEDS: CITRATE OF MAGNESIA PO PRN (12:30)
--- NOTE | 2016-05-25 12:39 | Progress Note ---
Assessment and Plan Assessment and plan: (1) Acute respiratory failure with hypoxia - Currently not in acute distress - Supplemental oxygen, nebs, supportive care, pulmonary toilet, incentive spirometry, NIPPV as clinically indicated. - Lasix 40mg IV BID - Pulmonary congestion - Pulmonary consult appreciated - Patient need home oxygen - Discussed with the patient about short-term rehabilitation he agrees with the plan (2) Acute exacerbation of CHF (congestive heart failure) - Cardiology consulted appreciated - Recommended conservative cardiac management (3) Acute exacerbation of chronic obstructive pulmonary disease - Continue current management plan (4) Atrial fibrillation continue current therapy, rate control, (5) Hypertension monitor bp q shift, continue current therapy (6) DVT prophylaxis Current Visit: No Status: Acute Disposition Plan: pending placement for short-term rehabilitation - Patient Problems (1) Acute exacerbation of CHF (congestive heart failure) Current Visit: Yes Status: Acute Qualifiers: Congestive heart failure type: diastolic Qualified Code(s): I50.33 - Acute on chronic diastolic (congestive) heart failure (2) Acute exacerbation of chronic obstructive pulmonary disease Current Visit: Yes Status: Acute (3) Acute respiratory failure with hypercapnia Current Visit: Yes Status: Acute (4) Acute respiratory failure with hypoxemia Current Visit: Yes Status: Acute (5) Chronic atrial fibrillation Current Visit: Yes Status: Acute (6) Sleep apnea, obstructive Current Visit: Yes Status: Acute History Interval history: Patient still complains of shortness of breath but better than the previous days. When he is off oxygen he desaturated to the 80's. Currently on 3 litres of oxygen. Hospitalist Physical - Physical exam Narrative exam: Not in cardiopulmonary distress. The patient is Obese. Vital signs as documented. Head exam is unremarkable. No scleral icterus . Neck is without jugular venous distension, thyromegaly, or carotid bruits. Lungs wheezing all over the chest and rales on posterior bibasilar area. Cardiac exam reveals regular rate and Rhythm. First and second heart sounds normal. No murmurs, rubs or gallops. Abdominal exam reveals normal bowel sounds, no masses, no organomegaly and no aortic enlargement. Extremities are nonedematous and both femoral and pedal pulses are normal. AND [employer]: Alert and oriented 3. No focal weakness. - Constitutional Vitals: Temp Pulse Resp BP Pulse Ox 97.1 F L 82 16 115/81 91 05/25/16 07:00 05/25/16 10:05 05/25/16 10:05 05/25/16 07:00 05/25/16 10:00 General appearance: Present: no acute distress Results - Labs CBC & Chem 7: 05/25/16 05:13 05/25/16 05:13 Labs: Laboratory Last Values WBC 14.9 K/mm3 (4.5-11.0) H 05/25/16 05:13 RBC 4.13 M/mm3 (3.65-5.03) 05/25/16 05:13 Hgb 13.0 gm/dl (11.8-15.2) 05/25/16 05:13 Hct 39.8 % (35.5-45.6) 05/25/16 05:13 MCV 96 fl (84-94) H 05/25/16 05:13 MCH 31 pg (28-32) 05/25/16 05:13 MCHC 33 % (32-34) 05/25/16 05:13 RDW 15.7 % (13.2-15.2) H 05/25/16 05:13 Plt Count 139 K/mm3 (140-440) L 05/25/16 05:13 Lymph % (Auto) 7.5 % (13.4-35.0) L 05/19/16 01:56 Powell % (Auto) 3.8 % (0.0-7.3) 05/19/16 01:56 Eos % (Auto) 0.2 % (0.0-4.3) 05/19/16 01:56 Baso % (Auto) 0.3 % (0.0-1.8) 05/19/16 01:56 Lymph # 0.8 K/mm3 (1.2-5.4) L 05/19/16 01:56 Powell # 0.4 K/mm3 (0.0-0.8) 05/19/16 01:56 Eos # 0.0 K/mm3 (0.0-0.4) 05/19/16 01:56 Baso # 0.0 K/mm3 (0.0-0.1) 05/19/16 01:56 Add Manual Diff Complete 05/25/16 05:13 Total Counted 100 05/25/16 05:13 Seg Neutrophils % Software Requirements Engineer 05/25/16 05:13 Seg Neuts % (Manual) 79.0 % (40.0-70.0) H 05/25/16 05:13 Band Neutrophils % 10.0 % 05/25/16 05:13 Lymphocytes % (Manual) 5.0 % (13.4-35.0) L 05/25/16 05:13 Reactive Lymphs % (Man) 0 % 05/25/16 05:13 Monocytes % (Manual) 6.0 % (0.0-7.3) 05/25/16 05:13 Eosinophils % (Manual) 0 % (0.0-4.3) 05/25/16 05:13 Basophils % (Manual) 0 % (0.0-1.8) 05/25/16 05:13 Metamyelocytes % 0 % 05/25/16 05:13 Myelocytes % 0 % 05/25/16 05:13 Promyelocytes % 0 % 05/25/16 05:13 Blast Cells % 0 % 05/25/16 05:13 Nucleated RBC % Not Reportable 05/25/16 05:13 Seg Neutrophils # 9.5 K/mm3 (1.8-7.7) H 05/19/16 01:56 Seg Neutrophils # Man 11.8 K/mm3 (1.8-7.7) H 05/25/16 05:13 Band Neutrophils # 1.5 K/mm3 05/25/16 05:13 Lymphocytes # (Manual) 0.7 K/mm3 (1.2-5.4) L 05/25/16 05:13 Abs React Lymphs (Man) 0.0 K/mm3 05/25/16 05:13 Monocytes # (Manual) 0.9 K/mm3 (0.0-0.8) H 05/25/16 05:13 Eosinophils # (Manual) 0.0 K/mm3 (0.0-0.4) 05/25/16 05:13 Basophils # (Manual) 0.0 K/mm3 (0.0-0.1) 05/25/16 05:13 Metamyelocytes # 0.0 K/mm3 05/25/16 05:13 Myelocytes # 0.0 K/mm3 05/25/16 05:13 Promyelocytes # 0.0 K/mm3 05/25/16 05:13 Blast Cells # 0.0 K/mm3 05/25/16 05:13 WBC Morphology Not Reportable 05/25/16 05:13 Hypersegmented Neuts Not Reportable 05/25/16 05:13 Hyposegmented Neuts Not Reportable 05/25/16 05:13 Hypogranular Neuts Not Reportable 05/25/16 05:13 Smudge Cells Not Reportable 05/25/16 05:13 Toxic Granulation Not Reportable 05/25/16 05:13 Toxic Vacuolation Rare 05/25/16 05:13 Dohle Bodies Not Reportable 05/25/16 05:13 Pelger-Huet Anomaly Not Reportable 05/25/16 05:13 Alonso Rods Not Reportable 05/25/16 05:13 Platelet Estimate Appears normal 05/25/16 05:13 Clumped Platelets Not Reportable 05/25/16 05:13 Plt Clumps, EDTA Not Reportable 05/25/16 05:13 Large Platelets Rare 05/25/16 05:13 Giant Platelets Not Reportable 05/25/16 05:13 Platelet Satelliting Not Reportable 05/25/16 05:13 Plt Morphology Comment Not Reportable 05/25/16 05:13 RBC Morphology Not Reportable 05/25/16 05:13 Dimorphic RBCs Not Reportable 05/25/16 05:13 Polychromasia Not Reportable 05/25/16 05:13 Hypochromasia Not Reportable 05/25/16 05:13 Poikilocytosis Not Reportable 05/25/16 05:13 Anisocytosis 1+ 05/25/16 05:13 Microcytosis Not Reportable 05/25/16 05:13 Macrocytosis Not Reportable 05/25/16 05:13 Spherocytes Not Reportable 05/25/16 05:13 Pappenheimer Bodies Not Reportable 05/25/16 05:13 Sickle Cells Not Reportable 05/25/16 05:13 Target Cells Not Reportable 05/25/16 05:13 Tear Drop Cells Not Reportable 05/25/16 05:13 Ovalocytes Not Reportable 05/25/16 05:13 Helmet Cells Not Reportable 05/25/16 05:13 Perez-Southside Bodies Not Reportable 05/25/16 05:13 Graham Rings Not Reportable 05/25/16 05:13 Neo Cells Not Reportable 05/25/16 05:13 Bite Cells Not Reportable 05/25/16 05:13 Crenated Cell Not Reportable 05/25/16 05:13 Elliptocytes 1+ 05/25/16 05:13 Acanthocytes (Spur) Not Reportable 05/25/16 05:13 Rouleaux Not Reportable 05/25/16 05:13 Hemoglobin C Crystals Not Reportable 05/25/16 05:13 Schistocytes Not Reportable 05/25/16 05:13 Malaria parasites Not Reportable 05/25/16 05:13 Spencer Bodies Not Reportable 05/25/16 05:13 Hem Pathologist Commnt No 05/25/16 05:13 POC ABG pH 7.375 (7.35-7.45) 05/23/16 12:05 POC ABG pCO2 48.0 (35-45) H 05/23/16 12:05 POC ABG pO2 119 (80-105) H 05/23/16 12:05 POC ABG HCO3 28.1 05/23/16 12:05 POC ABG Total CO2 30 05/23/16 12:05 POC ABG O2 Sat 99 05/23/16 12:05 POC ABG Base Excess 3 05/23/16 12:05 FiO2 36 % 05/23/16 12:05 Sodium 140 mmol/L (137-145) 05/25/16 05:13 Potassium 4.6 mmol/L (3.6-5.0) 05/25/16 05:13 Chloride 96.7 mmol/L (98-107) L 05/25/16 05:13 Carbon Dioxide 29 mmol/L (22-30) 05/25/16 05:13 Anion Gap 19 mmol/L 05/25/16 05:13 BUN 48 mg/dL (9-20) H 05/25/16 05:13 Creatinine 1.5 mg/dL (0.8-1.5) 05/25/16 05:13 Estimated GFR 55 ml/min 05/25/16 05:13 BUN/Creatinine Ratio 32.00 % 05/25/16 05:13 Glucose 212 mg/dL (75-100) H 05/25/16 05:13 POC Glucose 179 (70-105) H 05/25/16 06:21 Lactic Acid 1.1 mmol/L (0.7-2.0) 05/19/16 01:56 Calcium 8.8 mg/dL (8.4-10.2) 05/25/16 05:13 Total Creatine Kinase 253 units/L (55-170) H 05/19/16 13:28 CK-MB (CK-2) 2.0 ng/mL (0.0-4.0) 05/19/16 13:28 CK-MB (CK-2) Rel Index 0.7 (0-4) 05/19/16 13:28 Troponin T < 0.010 ng/mL (0.00-0.029) 05/19/16 13:28 NT-Pro-B Natriuret Pep 693.4 pg/mL (0-900) 05/19/16 01:56
--- NOTE | 2016-05-25 17:51 | Consultation ---
History of Present Illness - Reason for Consult Consult date: 05/25/16 Evaluate for Acute IRU - History of Present Illness 80 y.o male admitted secondary to progressively worsening shortness of breath, cough, wheezing. Pt treated for acute COPD exacerbation and acute on chronic CHF; also required medication dose adjustments for rate control, h/o AFib. Per nurse, pt noted to desat when attempting to wean oxygen; not previously on oxygen prior to this admission. Consult requested for post-acute placement recommendations. Past History Past Medical History: atrial fib, arthritis, CAD, COPD, heart failure, hypertension, other (gout) Past Surgical History: valve replacement, CABG, hernia repair Social history: lives with family, smoking Family history: CAD, diabetes, hypertension Medications and Allergies Allergies Allergy/AdvReac Type Severity Reaction Status Date / Time No Known Allergies Allergy Verified 05/19/16 01:11 Home Medications Medication Instructions Recorded Confirmed Last Taken Type Ipratropium/Albuter (Nf) 2 puff IH QID #1 inha 01/17/16 05/20/16 Unknown Rx [Combivent Inhaler] Montelukast [Singulair] 10 mg PO QPM #30 tablet 01/17/16 05/20/16 Unknown Rx Aspirin 81 mg PO DAILY 04/11/16 05/20/16 Unknown History AtorvaSTATin [Lipitor] 20 mg PO DAILY 04/11/16 05/20/16 Unknown History Dabigatran [Pradaxa] 75 mg PO BID 04/11/16 05/20/16 Unknown History Fish Oil/Borage/Flax/Om3,6,9#1 300 mg PO DAILY 04/11/16 05/20/16 Unknown History [[place] 3-6-9 1,200 mg Softgel] Fluticasone/Salmeterol [Advair 250 mcg IH BID 04/11/16 05/20/16 Unknown History Diskus 250-50 mcg] Furosemide [Lasix TAB] 40 mg PO BID 04/11/16 05/20/16 Unknown History Ipratropium (Nf) [Atrovent HFA 2 puff IH Q6HR 04/11/16 05/20/16 Unknown History 17MCG/PUFF] Lisinopril [Zestril TAB] 2.5 mg PO DAILY 04/11/16 05/20/16 Unknown History Potassium Chloride [Klor-Con] 20 meq PO DAILY 04/11/16 05/20/16 Unknown History glipiZIDE [Glucotrol] 5 mg PO QDAY 04/11/16 05/20/16 Unknown History Metoprolol [Lopressor TAB] 12.5 mg PO BID #60 tablet 04/13/16 05/20/16 Unknown Rx Active Meds: Active Medications Acetaminophen (Tylenol) 650 mg PO Q4H PRN PRN Reason: Pain MILD(1-3)/Fever >100.5/DAVALOS Last Admin: 05/20/16 17:58 Dose: 650 mg Albuterol (Proventil) 2.5 mg IH Q3HRT PRN PRN Reason: Shortness Of Breath Last Admin: 05/24/16 11:56 Dose: 2.5 mg Albuterol/Ipratropium (Duoneb 0.5 Mg-3 Mg/3 Ml Soln) 1 ampul IH TIDRT [facility] Last Admin: 05/25/16 14:05 Dose: 1 ampul Arformoterol Tartrate (Brovana Nebu) 15 mcg IH Q12HRT [facility] Last Admin: 05/25/16 09:55 Dose: 15 mcg Bisacodyl (Dulcolax) 10 mg [place] QDAY PRN PRN Reason: Constipation unrelieved by MOM Dabigatran (Pradaxa) 150 mg PO BID [facility] Last Admin: 05/25/16 10:18 Dose: 150 mg Diltiazem HCl (Cardizem) 90 mg PO Q8HR [facility] Last Admin: 05/25/16 14:12 Dose: 90 mg Furosemide (Lasix) 40 mg IV 0600,1800 [facility] Last Admin: 05/25/16 17:41 Dose: 40 mg Guaifenesin (Robitussin Dm) 10 ml PO Q4H PRN PRN Reason: Cough Last Admin: 05/21/16 13:07 Dose: 10 ml Hydrocodone Bit/Homatropine Methylb (Hydromet) 10 ml PO Q6H PRN PRN Reason: Cough UNRELIEVED BY ROBITUSSIN Last Admin: 05/20/16 12:25 Dose: 10 ml Insulin Aspart (Novolog) 0 units SUB-Q [facility] PRN Reason: Protocol Last Admin: 05/25/16 17:40 Dose: 6 units Insulin Aspart (Novolog) 4 units SUB-Q NOW [facility] Last Admin: 05/24/16 23:53 Dose: Not Given Levofloxacin (Levaquin) 750 mg PO Q48H [facility] Last Admin: 05/24/16 18:21 Dose: 750 mg Magnesium Citrate (Citrate Of Magnesia) 300 ml PO QDAY PRN PRN Reason: Bowel Movement Last Admin: 05/25/16 12:30 Dose: 300 ml Magnesium Hydroxide (Milk Of Magnesia) 30 ml PO Q4H PRN PRN Reason: Constipation Last Admin: 05/25/16 06:04 Dose: 30 ml Methylprednisolone Sodium Succinate (Solu-Medrol) 60 mg IV Q8HR [facility] Last Admin: 05/25/16 14:09 Dose: 60 mg Ondansetron HCl (Zofran) 4 mg IV Q8H PRN PRN Reason: N/V unrelieved by Eligio Pantoprazole Sodium (Protonix) 40 mg PO QDAY [facility] Last Admin: 05/25/16 10:18 Dose: 40 mg Review of Systems All systems: negative Ears, nose, mouth and throat: no headache Cardiovascular: no chest pain Respiratory: cough, shortness of breath Gastrointestinal: constipation Genitourinary Male: no dysuria Exam - Constitutional Vitals: Vital Signs - 12hr 05/25/16 05/25/16 05/25/16 05:56 07:00 09:55 Temperature 97.1 F L Pulse Rate 107 H Pulse Rate [ 74 Anterior Bilateral Throughout] Pulse Rate [ 102 H Right Radial] Respiratory 22 Rate Respiratory 16 Rate [Anterior Bilateral Throughout] Blood Pressure 122/76 Blood Pressure 115/81 [Right Arm] O2 Sat by Pulse 96 Oximetry 05/25/16 05/25/16 05/25/16 10:00 10:05 14:05 Temperature Pulse Rate Pulse Rate [ 82 86 Anterior Bilateral Throughout] Pulse Rate [ Right Radial] Respiratory Rate Respiratory 16 18 Rate [Anterior Bilateral Throughout] Blood Pressure Blood Pressure [Right Arm] O2 Sat by Pulse 91 Oximetry 05/25/16 05/25/16 05/25/16 14:12 14:14 15:37 Temperature 97.9 F Pulse Rate 102 H Pulse Rate [ 91 H Anterior Bilateral Throughout] Pulse Rate [ 72 Right Radial] Respiratory 20 Rate Respiratory 18 Rate [Anterior Bilateral Throughout] Blood Pressure 126/81 Blood Pressure 120/81 [Right Arm] O2 Sat by Pulse Oximetry General appearance: no acute distress, obese - EENT Eyes: EOM intact ENT: hearing intact - Neck Neck: supple, normal ROM - Respiratory Respiratory effort: normal Respiratory: bilateral: wheezing - Cardiovascular Heart Sounds: Present: S1 & S2 - Extremities Extremity abnormal: edema (mild) - Gastrointestinal General gastrointestinal: Present: soft, non-tender, non-distended, normal bowel sounds - Integumentary Integumentary: Present: clear - Neurologic Neurologic: CNII-XII intact, moves all extremities (4/5 throughout) - Psychiatric Psychiatric: appropriate mood/affect, intact judgment & insight, memory intact, cooperative - Allied health notes Allied health notes reviewed: PT (Independent with gait, transfers, bed mobility ) FIMS assesment as documented by PT/OT/ST: Locomotion- walk/wheelchair Ambulation Distance 100 - Labs CBC & Chem 7: 05/25/16 05:13 05/25/16 05:13 Labs: Laboratory Results - last 72 hr 05/22/16 05/22/16 05/22/16 18:11 18:11 21:04 WBC 13.9 H RBC 4.07 Hgb 12.7 Hct 39.1 MCV 96 H MCH 31 MCHC 32 RDW 16.2 H Plt Count 145 Add Manual Diff Complete Total Counted 100 Seg Neutrophils % Laboratory Secretary Seg Neuts % (Manual) 95.0 H Band Neutrophils % 0 Lymphocytes % (Manual) 3.0 L Reactive Lymphs % (Man) 0 Monocytes % (Manual) 2.0 Eosinophils % (Manual) 0 Basophils % (Manual) 0 Metamyelocytes % 0 Myelocytes % 0 Promyelocytes % 0 Blast Cells % 0 Nucleated RBC % Not Reportable Seg Neutrophils # Man 13.2 H Band Neutrophils # 0.0 Lymphocytes # (Manual) 0.4 L Abs React Lymphs (Man) 0.0 Monocytes # (Manual) 0.3 Eosinophils # (Manual) 0.0 Basophils # (Manual) 0.0 Metamyelocytes # 0.0 Myelocytes # 0.0 Promyelocytes # 0.0 Blast Cells # 0.0 WBC Morphology Not Reportable Hypersegmented Neuts Not Reportable Hyposegmented Neuts Not Reportable Hypogranular Neuts Not Reportable Smudge Cells Not Reportable Toxic Granulation Not Reportable Toxic Vacuolation Not Reportable Dohle Bodies Not Reportable Pelger-Huet Anomaly Not Reportable Alonso Rods Not Reportable Platelet Estimate Consistent w auto Clumped Platelets Not Reportable Plt Clumps, EDTA Not Reportable Large Platelets Not Reportable Giant Platelets Not Reportable Platelet Satelliting Not Reportable Plt Morphology Comment Not Reportable RBC Morphology Not Reportable Dimorphic RBCs Not Reportable Polychromasia Not Reportable Hypochromasia Not Reportable Poikilocytosis 1+ Anisocytosis 1+ Microcytosis Not Reportable Macrocytosis Not Reportable Spherocytes Not Reportable Pappenheimer Bodies Not Reportable Sickle Cells Not Reportable Target Cells Not Reportable Tear Drop Cells Not Reportable Ovalocytes Not Reportable Helmet Cells Not Reportable Perez-Raritan Bodies Not Reportable [place] Rings Not Reportable [place] Cells Not Reportable Bite Cells Not Reportable Crenated Cell Not Reportable Elliptocytes Not Reportable Acanthocytes (Spur) Not Reportable Rouleaux Not Reportable Hemoglobin C Crystals Not Reportable Schistocytes Not Reportable Malaria parasites Not Reportable Spencer Bodies Not Reportable Hem Pathologist Commnt No POC ABG pH POC ABG pCO2 POC ABG pO2 POC ABG HCO3 POC ABG Total CO2 POC ABG O2 Sat POC ABG Base Excess FiO2 Sodium 141 Potassium 4.3 Chloride 94.9 L Carbon Dioxide 26 Anion Gap 24 BUN 54 H Creatinine 1.9 H Estimated GFR 42 BUN/Creatinine Ratio 28.42 Glucose 234 H POC Glucose 222 H Calcium 9.2 05/23/16 05/23/16 05/23/16 05:10 05:10 06:20 WBC 13.3 H RBC 4.09 Hgb 12.5 Hct 38.9 MCV 95 H MCH 31 MCHC 32 RDW 16.1 H Plt Count 141 Add Manual Diff Complete Total Counted 100 Seg Neutrophils % Laboratory Secretary Seg Neuts % (Manual) 86.0 H Band Neutrophils % 8.0 Lymphocytes % (Manual) 2.0 L Reactive Lymphs % (Man) 0 Monocytes % (Manual) 4.0 Eosinophils % (Manual) 0 Basophils % (Manual) 0 Metamyelocytes % 0 Myelocytes % 0 Promyelocytes % 0 Blast Cells % 0 Nucleated RBC % Not Reportable Seg Neutrophils # Man 11.4 H Band Neutrophils # 1.1 Lymphocytes # (Manual) 0.3 L Abs React Lymphs (Man) 0.0 Monocytes # (Manual) 0.5 Eosinophils # (Manual) 0.0 Basophils # (Manual) 0.0 Metamyelocytes # 0.0 Myelocytes # 0.0 Promyelocytes # 0.0 Blast Cells # 0.0 WBC Morphology Not Reportable Hypersegmented Neuts Not Reportable Hyposegmented Neuts Not Reportable Hypogranular Neuts Not Reportable Smudge Cells Not Reportable Toxic Granulation Not Reportable Toxic Vacuolation Not Reportable Dohle Bodies Not Reportable Pelger-Huet Anomaly Not Reportable Alonso Rods Not Reportable Platelet Estimate Not Reportable Clumped Platelets Not Reportable Plt Clumps, EDTA Not Reportable Large Platelets Not Reportable Giant Platelets Not Reportable Platelet Satelliting Not Reportable Plt Morphology Comment Not Reportable RBC Morphology Not Reportable Dimorphic RBCs Not Reportable Polychromasia Not Reportable Hypochromasia Not Reportable Poikilocytosis Few Anisocytosis 1+ Microcytosis Not Reportable Macrocytosis Not Reportable Spherocytes Not Reportable Pappenheimer Bodies Not Reportable Sickle Cells Not Reportable Target Cells Not Reportable Tear Drop Cells Not Reportable Ovalocytes Not Reportable Helmet Cells Not Reportable Perez-Raritan Bodies Not Reportable [place] Rings Not Reportable Neo Cells Not Reportable Bite Cells Not Reportable Crenated Cell Not Reportable Elliptocytes Not Reportable Acanthocytes (Spur) Not Reportable Rouleaux Not Reportable Hemoglobin C Crystals Not Reportable Schistocytes Not Reportable Malaria parasites Not Reportable Spencer Bodies Not Reportable Hem Pathologist Commnt No POC ABG pH POC ABG pCO2 POC ABG pO2 POC ABG HCO3 POC ABG Total CO2 POC ABG O2 Sat POC ABG Base Excess FiO2 Sodium 138 Potassium 4.7 Chloride 97.0 L Carbon Dioxide 24 Anion Gap 22 BUN 50 H Creatinine 1.5 Estimated GFR 55 BUN/Creatinine Ratio 33.33 Glucose 224 H POC Glucose 270 H Calcium 8.9 05/23/16 05/23/16 05/23/16 12:05 12:32 22:33 WBC RBC Hgb Hct MCV MCH MCHC RDW Plt Count Add Manual Diff Total Counted Seg Neutrophils % Seg Neuts % (Manual) Band Neutrophils % Lymphocytes % (Manual) Reactive Lymphs % (Man) Monocytes % (Manual) Eosinophils % (Manual) Basophils % (Manual) Metamyelocytes % Myelocytes % Promyelocytes % Blast Cells % Nucleated RBC % Seg Neutrophils # Man Band Neutrophils # Lymphocytes # (Manual) Abs React Lymphs (Man) Monocytes # (Manual) Eosinophils # (Manual) Basophils # (Manual) Metamyelocytes # Myelocytes # Promyelocytes # Blast Cells # WBC Morphology Hypersegmented Neuts Hyposegmented Neuts Hypogranular Neuts Smudge Cells Toxic Granulation Toxic Vacuolation Dohle Bodies Pelger-Huet Anomaly Alonso Rods Platelet Estimate Clumped Platelets Plt Clumps, EDTA Large Platelets Giant Platelets Platelet Satelliting Plt Morphology Comment RBC Morphology Dimorphic RBCs Polychromasia Hypochromasia Poikilocytosis Anisocytosis Microcytosis Macrocytosis Spherocytes Pappenheimer Bodies Sickle Cells Target Cells Tear Drop Cells Ovalocytes Helmet Cells Perez-Raritan Bodies [place] Rings [place] Cells Bite Cells Crenated Cell Elliptocytes Acanthocytes (Spur) Rouleaux Hemoglobin C Crystals Schistocytes Malaria parasites Spencer Bodies Hem Pathologist Commnt POC ABG pH 7.375 POC ABG pCO2 48.0 H POC ABG pO2 119 H POC ABG HCO3 28.1 POC ABG Total CO2 30 POC ABG O2 Sat 99 POC ABG Base Excess 3 FiO2 36 Sodium Potassium Chloride Carbon Dioxide Anion Gap BUN Creatinine Estimated GFR BUN/Creatinine Ratio Glucose POC Glucose 224 H 220 H Calcium 05/24/16 05/24/16 05/24/16 06:45 11:14 16:06 WBC RBC Hgb Hct MCV MCH MCHC RDW Plt Count Add Manual Diff Total Counted Seg Neutrophils % Seg Neuts % (Manual) Band Neutrophils % Lymphocytes % (Manual) Reactive Lymphs % (Man) Monocytes % (Manual) Eosinophils % (Manual) Basophils % (Manual) Metamyelocytes % Myelocytes % Promyelocytes % Blast Cells % Nucleated RBC % Seg Neutrophils # Man Band Neutrophils # Lymphocytes # (Manual) Abs React Lymphs (Man) Monocytes # (Manual) Eosinophils # (Manual) Basophils # (Manual) Metamyelocytes # Myelocytes # Promyelocytes # Blast Cells # WBC Morphology Hypersegmented Neuts Hyposegmented Neuts Hypogranular Neuts Smudge Cells Toxic Granulation Toxic Vacuolation Dohle Bodies Pelger-Huet Anomaly Alonso Rods Platelet Estimate Clumped Platelets Plt Clumps, EDTA Large Platelets Giant Platelets Platelet Satelliting Plt Morphology Comment RBC Morphology Dimorphic RBCs Polychromasia Hypochromasia Poikilocytosis Anisocytosis Microcytosis Macrocytosis Spherocytes Pappenheimer Bodies Sickle Cells Target Cells Tear Drop Cells Ovalocytes Helmet Cells Perez-Raritan Bodies [place] Rings Neo Cells Bite Cells Crenated Cell Elliptocytes Acanthocytes (Spur) Rouleaux Hemoglobin C Crystals Schistocytes Malaria parasites Spencer Bodies Hem Pathologist Commnt POC ABG pH POC ABG pCO2 POC ABG pO2 POC ABG HCO3 POC ABG Total CO2 POC ABG O2 Sat POC ABG Base Excess FiO2 Sodium Potassium Chloride Carbon Dioxide Anion Gap BUN Creatinine Estimated GFR BUN/Creatinine Ratio Glucose POC Glucose 175 H 234 H 290 H Calcium 05/24/16 05/25/16 05/25/16 21:25 05:13 05:13 WBC 14.9 H RBC 4.13 Hgb 13.0 Hct 39.8 MCV 96 H MCH 31 MCHC 33 RDW 15.7 H Plt Count 139 L Add Manual Diff Complete Total Counted 100 Seg Neutrophils % Laboratory Secretary Seg Neuts % (Manual) 79.0 H Band Neutrophils % 10.0 Lymphocytes % (Manual) 5.0 L Reactive Lymphs % (Man) 0 Monocytes % (Manual) 6.0 Eosinophils % (Manual) 0 Basophils % (Manual) 0 Metamyelocytes % 0 Myelocytes % 0 Promyelocytes % 0 Blast Cells % 0 Nucleated RBC % Not Reportable Seg Neutrophils # Man 11.8 H Band Neutrophils # 1.5 Lymphocytes # (Manual) 0.7 L Abs React Lymphs (Man) 0.0 Monocytes # (Manual) 0.9 H Eosinophils # (Manual) 0.0 Basophils # (Manual) 0.0 Metamyelocytes # 0.0 Myelocytes # 0.0 Promyelocytes # 0.0 Blast Cells # 0.0 WBC Morphology Not Reportable Hypersegmented Neuts Not Reportable Hyposegmented Neuts Not Reportable Hypogranular Neuts Not Reportable Smudge Cells Not Reportable Toxic Granulation Not Reportable Toxic Vacuolation Rare Dohle Bodies Not Reportable Pelger-Huet Anomaly Not Reportable Alonso Rods Not Reportable Platelet Estimate Appears normal Clumped Platelets Not Reportable Plt Clumps, EDTA Not Reportable Large Platelets Rare Giant Platelets Not Reportable Platelet Satelliting Not Reportable Plt Morphology Comment Not Reportable RBC Morphology Not Reportable Dimorphic RBCs Not Reportable Polychromasia Not Reportable Hypochromasia Not Reportable Poikilocytosis Not Reportable Anisocytosis 1+ Microcytosis Not Reportable Macrocytosis Not Reportable Spherocytes Not Reportable Pappenheimer Bodies Not Reportable Sickle Cells Not Reportable Target Cells Not Reportable Tear Drop Cells Not Reportable Ovalocytes Not Reportable Helmet Cells Not Reportable Perez-Raritan Bodies Not Reportable [place] Rings Not Reportable Neo Cells Not Reportable Bite Cells Not Reportable Crenated Cell Not Reportable Elliptocytes 1+ Acanthocytes (Spur) Not Reportable Rouleaux Not Reportable Hemoglobin C Crystals Not Reportable Schistocytes Not Reportable Malaria parasites Not Reportable Spencer Bodies Not Reportable Hem Pathologist Commnt No POC ABG pH POC ABG pCO2 POC ABG pO2 POC ABG HCO3 POC ABG Total CO2 POC ABG O2 Sat POC ABG Base Excess FiO2 Sodium 140 Potassium 4.6 Chloride 96.7 L Carbon Dioxide 29 Anion Gap 19 BUN 48 H Creatinine 1.5 Estimated GFR 55 BUN/Creatinine Ratio 32.00 Glucose 212 H POC Glucose 266 H Calcium 8.8 05/25/16 05/25/16 05/25/16 06:21 12:32 15:52 WBC RBC Hgb Hct MCV MCH MCHC RDW Plt Count Add Manual Diff Total Counted Seg Neutrophils % Seg Neuts % (Manual) Band Neutrophils % Lymphocytes % (Manual) Reactive Lymphs % (Man) Monocytes % (Manual) Eosinophils % (Manual) Basophils % (Manual) Metamyelocytes % Myelocytes % Promyelocytes % Blast Cells % Nucleated RBC % Seg Neutrophils # Man Band Neutrophils # Lymphocytes # (Manual) Abs React Lymphs (Man) Monocytes # (Manual) Eosinophils # (Manual) Basophils # (Manual) Metamyelocytes # Myelocytes # Promyelocytes # Blast Cells # WBC Morphology Hypersegmented Neuts Hyposegmented Neuts Hypogranular Neuts Smudge Cells Toxic Granulation Toxic Vacuolation Dohle Bodies Pelger-Huet Anomaly Alonso Rods Platelet Estimate Clumped Platelets Plt Clumps, EDTA Large Platelets Giant Platelets Platelet Satelliting Plt Morphology Comment RBC Morphology Dimorphic RBCs Polychromasia Hypochromasia Poikilocytosis Anisocytosis Microcytosis Macrocytosis Spherocytes Pappenheimer Bodies Sickle Cells Target Cells Tear Drop Cells Ovalocytes Helmet Cells Perez-Rar[place] Bodies [place] Rings [place] Cells Bite Cells Crenated Cell Elliptocytes Acanthocytes (Spur) Rouleaux Hemoglobin C Crystals Schistocytes Malaria parasites Spencer Bodies Hem Pathologist Commnt POC ABG pH POC ABG pCO2 POC ABG pO2 POC ABG HCO3 POC ABG Total CO2 POC ABG O2 Sat POC ABG Base Excess FiO2 Sodium Potassium Chloride Carbon Dioxide Anion Gap BUN Creatinine Estimated GFR BUN/Creatinine Ratio Glucose POC Glucose 179 H 310 H 301 H Calcium Assessment and Plan Patient was assessed and evaluated for Acute Inpatient Rehab Unit. 80 y.o. male with COPD and CHF exacerbation; improved dyspnea on exertion, however, now with oxygen requirement. Pt is able to ambulate independently and has no therapy needs; discharged from PT services following evaluation. Pt is most appropriate for home with home health, oxygen; otherwise, recommend SNF placement. Please call for any further questions. Thank you for consultation. - Patient Problems (1) Acute exacerbation of CHF (congestive heart failure) Current Visit: Yes Status: Acute Qualifiers: Congestive heart failure type: diastolic Qualified Code(s): I50.33 - Acute on chronic diastolic (congestive) heart failure (2) Acute exacerbation of chronic obstructive pulmonary disease Current Visit: Yes Status: Acute (3) Chronic atrial fibrillation Current Visit: Yes Status: Acute
[2016-05-25 19:42] LABS: ISTAT Base Excess 12; ISTAT HCO3 35.6; ISTAT PCO2 46.5 (35-45); ISTAT PH 7.492 (7.35-7.45); ISTAT PO2 44 (80-105); ISTAT SITE 0; ISTAT SO2 83; ISTAT TCO2 37
[2016-05-26] MEDS: CARDIZEM PO SCH ×3 (06:45→22:52)
[2016-05-26] MEDS: LASIX IV SCH ×2 (06:45→16:12)
[2016-05-26] MEDS: BROVANA NEBU IH SCH ×2 (07:56→20:29)
[2016-05-26] MEDS: DUONEB 0.5 MG-3 MG/3 ML SOLN IH SCH ×3 (07:56→20:29)
[2016-05-26] MEDS: NOVOLOG SUB-Q SCH ×5 (08:32→23:37)
--- NOTE | 2016-05-26 10:47 | Progress Note ---
Assessment and Plan This is 80 year old , [place] male history of COPD vs Asthma admitted through emergency room with shortness of breath, wheezing and non productive cough and got progressively worse for last 12 days. Patient also has history ofHypertension, CHF and Atrial fibrillation and arthritis and Gout. Patient also Obese.Patient has history of smoking . Says stopped smoking in late senti.No alchhol or drug history. Patient has no known allergies. 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 Patient has history of Open heart surgery. Patient sleepy at this time. On O2 5 litres and O2 satuaration 95%. 05/25/16 Patient still having cough, mostly on productive. patient resting on 3 litres O2.O2 satuaration 91%. No acute respiratory distress. Repeating blood gases on room air. If PO2 is low, Patient is candidate for Home O2.Patient can go to rehab from pulmonary point of view. Once patient discharged from rehab. Patient can come to my office for pulmonary follow up as out patient. 05/26/16 Patients blood gases showed PH 7.49, PCO2 47, PO2 44, HCO3 36, O2 satuaration 83 % on room air. Patient is candidate for home O2.Recommend O2 3 litres via nasal canula. Patient alert,awake and sitting up by the side of the bed. Says breathing better. No acute respiratory distress. - Patient Problems (1) Acute exacerbation of chronic obstructive pulmonary disease Current Visit: Yes Status: Acute Plan to address problem: Continue albuterol/atrovent aerosol treatments q 6 hours. Continue solumedral. Continue zithomax. 05/25/16 Zithromax discontiued. Patient is on levaquine. Continue solumedral Continue albuterol/atrovent aerosol treatments. (2) Acute respiratory failure with hypercapnia Current Visit: Yes Status: Acute Plan to address problem: BIPAP 20/8, rate 20 FIO2 30% Albuterol/atrovent aerosol treatments q 6 hours. Continue solumedral Continue Pradaxa. Recommend po Protonix. 05/25/16 Continue O2 3 litres via nasal canula. ABGs on room air. Continue solumedral Continue Pradaxa. Continue protonix. (3) Acute exacerbation of CHF (congestive heart failure) Current Visit: Yes Status: Acute Qualifiers: Congestive heart failure type: diastolic Qualified Code(s): I50.33 - Acute on chronic diastolic (congestive) heart failure Plan to address problem: Mangement as per cardiology. (4) Chronic atrial fibrillation Current Visit: Yes Status: Acute Plan to address problem: Patient is on pradaxa and cardiezem. Management as per cardiology. (5) Sleep apnea, obstructive Current Visit: Yes Status: Acute Plan to address problem: Patient sleepy, has snoring and daytime sleepiness.Patient may have sleep apnea. Recommend sleep study as out patient. Subjective Date of service: 05/26/16 Principal diagnosis: COPD exacerbation Interval history: Patients blood gases showed PH 7.49, PCO2 47, PO2 44, HCO3 36, O2 satuaration 83 % on room air. Patient is candidate for home O2.Recommend O2 3 litres via nasal canula. Patient alert,awake and sitting up by the side of the bed. Says breathing better. No acute respiratory distress. Objective Vital Signs - 12hr 05/25/16 05/26/16 05/26/16 23:59 06:45 07:56 Temperature 97.8 F Pulse Rate [ 87 Anterior Bilateral Throughout] Pulse Rate [ 110 H Right Radial] Respiratory 18 Rate Respiratory 18 Rate [Anterior Bilateral Throughout] Blood Pressure 128/80 Blood Pressure 126/78 [Right Arm] O2 Sat by Pulse 86 Oximetry 05/26/16 05/26/16 08:00 08:06 Temperature 97.5 F L Pulse Rate [ 88 Anterior Bilateral Throughout] Pulse Rate [ 110 H Right Radial] Respiratory 22 Rate Respiratory 16 Rate [Anterior Bilateral Throughout] Blood Pressure Blood Pressure 117/78 [Right Arm] O2 Sat by Pulse 95 Oximetry Constitutional: no acute distress, lethargic, appears uncomfortable Eyes: non-icteric ENT: oropharynx moist Neck: supple, no JVD Effort: mildly labored Ascultation: Bilateral: wheezes (expiratory), rhonchi Cardiovascular: regular rate and rhythm Gastrointestinal: normoactive bowel sounds, soft, non-tender, non-distended Integumentary: normal Extremities: no cyanosis, no edema, pulses normal, no ischemia or petechiae Neurologic: non-focal exam, pupils equal and round, CN II-XII normal, motor strength normal and Psychiatric: mood appropriate, affect normal, other (? dementia element) CBC and BMP: 05/25/16 05:13 05/25/16 05:13 ABG, PT/INR, D-dimer: ABG POC ABG pH 7.492 (7.35-7.45) H 05/25/16 19:25 POC ABG pCO2 46.5 (35-45) H 05/25/16 19:25 POC ABG pO2 44 (80-105) L 05/25/16 19:25 POC ABG HCO3 35.6 05/25/16 19:25 POC ABG Total CO2 37 05/25/16 19:25 POC ABG O2 Sat 83 05/25/16 19:25 Abnormal lab findings: Abnormal Labs 05/19/16 05/19/16 05/20/16 07:30 13:28 05:09 WBC 16.5 H MCV 97 H RDW 16.4 H Plt Count 129 L Seg Neuts % (Manual) 86.0 H Lymphocytes % (Manual) 3.0 L Seg Neutrophils # Man 14.2 H Lymphocytes # (Manual) 0.5 L Monocytes # (Manual) POC ABG pH POC ABG pCO2 POC ABG pO2 Chloride BUN Creatinine Glucose POC Glucose Total Creatine Kinase 211 H 253 H 05/20/16 05/21/16 05/21/16 17:44 12:09 17:05 WBC MCV RDW Plt Count Seg Neuts % (Manual) Lymphocytes % (Manual) Seg Neutrophils # Man Lymphocytes # (Manual) Monocytes # (Manual) POC ABG pH 7.318 L POC ABG pCO2 50.1 H POC ABG pO2 302 H Chloride BUN Creatinine Glucose POC Glucose 251 H 291 H Total Creatine Kinase 05/21/16 05/22/16 05/22/16 20:43 06:14 12:22 WBC MCV RDW Plt Count Seg Neuts % (Manual) Lymphocytes % (Manual) Seg Neutrophils # Man Lymphocytes # (Manual) Monocytes # (Manual) POC ABG pH POC ABG pCO2 POC ABG pO2 Chloride BUN Creatinine Glucose POC Glucose 205 H 157 H 257 H Total Creatine Kinase 05/22/16 05/22/16 05/22/16 16:20 18:11 18:11 WBC 13.9 H MCV 96 H RDW 16.2 H Plt Count Seg Neuts % (Manual) 95.0 H Lymphocytes % (Manual) 3.0 L Seg Neutrophils # Man 13.2 H Lymphocytes # (Manual) 0.4 L Monocytes # (Manual) POC ABG pH POC ABG pCO2 POC ABG pO2 Chloride 94.9 L BUN 54 H Creatinine 1.9 H Glucose 234 H POC Glucose 201 H Total Creatine Kinase 05/22/16 05/23/16 05/23/16 21:04 05:10 05:10 WBC 13.3 H MCV 95 H RDW 16.1 H Plt Count Seg Neuts % (Manual) 86.0 H Lymphocytes % (Manual) 2.0 L Seg Neutrophils # Man 11.4 H Lymphocytes # (Manual) 0.3 L Monocytes # (Manual) POC ABG pH POC ABG pCO2 POC ABG pO2 Chloride 97.0 L BUN 50 H Creatinine Glucose 224 H POC Glucose 222 H Total Creatine Kinase 05/23/16 05/23/16 05/23/16 06:20 12:05 12:32 WBC MCV RDW Plt Count Seg Neuts % (Manual) Lymphocytes % (Manual) Seg Neutrophils # Man Lymphocytes # (Manual) Monocytes # (Manual) POC ABG pH POC ABG pCO2 48.0 H POC ABG pO2 119 H Chloride BUN Creatinine Glucose POC Glucose 270 H 224 H Total Creatine Kinase 05/23/16 05/24/16 05/24/16 22:33 06:45 11:14 WBC MCV RDW Plt Count Seg Neuts % (Manual) Lymphocytes % (Manual) Seg Neutrophils # Man Lymphocytes # (Manual) Monocytes # (Manual) POC ABG pH POC ABG pCO2 POC ABG pO2 Chloride BUN Creatinine Glucose POC Glucose 220 H 175 H 234 H Total Creatine Kinase 05/24/16 05/24/16 05/25/16 16:06 21:25 05:13 WBC 14.9 H MCV 96 H RDW 15.7 H Plt Count 139 L Seg Neuts % (Manual) 79.0 H Lymphocytes % (Manual) 5.0 L Seg Neutrophils # Man 11.8 H Lymphocytes # (Manual) 0.7 L Monocytes # (Manual) 0.9 H POC ABG pH POC ABG pCO2 POC ABG pO2 Chloride BUN Creatinine Glucose POC Glucose 290 H 266 H Total Creatine Kinase 05/25/16 05/25/16 05/25/16 05:13 06:21 12:32 WBC MCV RDW Plt Count Seg Neuts % (Manual) Lymphocytes % (Manual) Seg Neutrophils # Man Lymphocytes # (Manual) Monocytes # (Manual) POC ABG pH POC ABG pCO2 POC ABG pO2 Chloride 96.7 L BUN 48 H Creatinine Glucose 212 H POC Glucose 179 H 310 H Total Creatine Kinase 05/25/16 05/25/16 05/25/16 15:52 19:25 21:09 WBC MCV RDW Plt Count Seg Neuts % (Manual) Lymphocytes % (Manual) Seg Neutrophils # Man Lymphocytes # (Manual) Monocytes # (Manual) POC ABG pH 7.492 H POC ABG pCO2 46.5 H POC ABG pO2 44 L Chloride BUN Creatinine Glucose POC Glucose 301 H 261 H Total Creatine Kinase 05/25/16 05/26/16 23:23 06:00 WBC MCV RDW Plt Count Seg Neuts % (Manual) Lymphocytes % (Manual) Seg Neutrophils # Man Lymphocytes # (Manual) Monocytes # (Manual) POC ABG pH POC ABG pCO2 POC ABG pO2 Chloride BUN Creatinine Glucose POC Glucose 241 H 262 H Total Creatine Kinase
[2016-05-26] MEDS: PROTONIX PO SCH (11:53)
[2016-05-26] MEDS: LASIX PO SCH (11:54)
[2016-05-26] MEDS: PRADAXA PO SCH ×2 (11:54→22:52)
--- NOTE | 2016-05-26 13:39 | Progress Note ---
Assessment and Plan Assessment and plan: (1) Acute respiratory failure with hypoxia - Currently not in acute distress - Supplemental oxygen, nebs, supportive care, pulmonary toilet, incentive spirometry, NIPPV as clinically indicated. - Lasix 40mg IV BID - Pulmonary congestion - Pulmonary consult appreciated - Patient need home oxygen - Discussed with the patient about short-term rehabilitation he agrees with the plan (2) Acute exacerbation of CHF (congestive heart failure) - Cardiology consulted appreciated - Recommended conservative cardiac management (3) Acute exacerbation of chronic obstructive pulmonary disease - Continue current management plan (4) Atrial fibrillation continue current therapy, rate control, (5) Hypertension monitor bp q shift, continue current therapy (6) DVT prophylaxis Current Visit: No Status: Acute Disposition Plan: we will discharge to SNF for rehab with oxygen - Patient Problems (1) Acute exacerbation of CHF (congestive heart failure) Current Visit: Yes Status: Acute Qualifiers: Congestive heart failure type: diastolic Qualified Code(s): I50.33 - Acute on chronic diastolic (congestive) heart failure (2) Acute exacerbation of chronic obstructive pulmonary disease Current Visit: Yes Status: Acute (3) Acute respiratory failure with hypercapnia Current Visit: Yes Status: Acute (4) Acute respiratory failure with hypoxemia Current Visit: Yes Status: Acute (5) Chronic atrial fibrillation Current Visit: Yes Status: Acute (6) Sleep apnea, obstructive Current Visit: Yes Status: Acute History Interval history: Patient still complains of shortness of breath but better than the previous days. Currently on 3 litres of oxygen. Hospitalist Physical - Physical exam Narrative exam: Not in cardiopulmonary distress. The patient is Obese. Vital signs as documented. Head exam is unremarkable. No scleral icterus . Neck is without jugular venous distension, thyromegaly, or carotid bruits. Lungs wheezing all over the chest and rales on posterior bibasilar area. Cardiac exam reveals regular rate and Rhythm. First and second heart sounds normal. No murmurs, rubs or gallops. Abdominal exam reveals normal bowel sounds, no masses, no organomegaly and no aortic enlargement. Extremities are nonedematous and both femoral and pedal pulses are normal. DATABASE DBA: Alert and oriented 3. No focal weakness. - Constitutional Vitals: Temp Pulse Resp BP Pulse Ox 97.5 F L 88 16 117/78 95 05/26/16 08:00 05/26/16 08:06 05/26/16 08:06 05/26/16 08:00 05/26/16 08:00 General appearance: Present: no acute distress, obese Results - Labs CBC & Chem 7: 05/25/16 05:13 05/25/16 05:13 Labs: Laboratory Last Values WBC 14.9 K/mm3 (4.5-11.0) H 05/25/16 05:13 RBC 4.13 M/mm3 (3.65-5.03) 05/25/16 05:13 Hgb 13.0 gm/dl (11.8-15.2) 05/25/16 05:13 Hct 39.8 % (35.5-45.6) 05/25/16 05:13 MCV 96 fl (84-94) H 05/25/16 05:13 MCH 31 pg (28-32) 05/25/16 05:13 MCHC 33 % (32-34) 05/25/16 05:13 RDW 15.7 % (13.2-15.2) H 05/25/16 05:13 Plt Count 139 K/mm3 (140-440) L 05/25/16 05:13 Lymph % (Auto) 7.5 % (13.4-35.0) L 05/19/16 01:56 Clare % (Auto) 3.8 % (0.0-7.3) 05/19/16 01:56 Eos % (Auto) 0.2 % (0.0-4.3) 05/19/16 01:56 Baso % (Auto) 0.3 % (0.0-1.8) 05/19/16 01:56 Lymph # 0.8 K/mm3 (1.2-5.4) L 05/19/16 01:56 Clare # 0.4 K/mm3 (0.0-0.8) 05/19/16 01:56 Eos # 0.0 K/mm3 (0.0-0.4) 05/19/16 01:56 Baso # 0.0 K/mm3 (0.0-0.1) 05/19/16 01:56 Add Manual Diff Complete 05/25/16 05:13 Total Counted 100 05/25/16 05:13 Seg Neutrophils % Linotypist 05/25/16 05:13 Seg Neuts % (Manual) 79.0 % (40.0-70.0) H 05/25/16 05:13 Band Neutrophils % 10.0 % 05/25/16 05:13 Lymphocytes % (Manual) 5.0 % (13.4-35.0) L 05/25/16 05:13 Reactive Lymphs % (Man) 0 % 05/25/16 05:13 Monocytes % (Manual) 6.0 % (0.0-7.3) 05/25/16 05:13 Eosinophils % (Manual) 0 % (0.0-4.3) 05/25/16 05:13 Basophils % (Manual) 0 % (0.0-1.8) 05/25/16 05:13 Metamyelocytes % 0 % 05/25/16 05:13 Myelocytes % 0 % 05/25/16 05:13 Promyelocytes % 0 % 05/25/16 05:13 Blast Cells % 0 % 05/25/16 05:13 Nucleated RBC % Not Reportable 05/25/16 05:13 Seg Neutrophils # 9.5 K/mm3 (1.8-7.7) H 05/19/16 01:56 Seg Neutrophils # Man 11.8 K/mm3 (1.8-7.7) H 05/25/16 05:13 Band Neutrophils # 1.5 K/mm3 05/25/16 05:13 Lymphocytes # (Manual) 0.7 K/mm3 (1.2-5.4) L 05/25/16 05:13 Abs React Lymphs (Man) 0.0 K/mm3 05/25/16 05:13 Monocytes # (Manual) 0.9 K/mm3 (0.0-0.8) H 05/25/16 05:13 Eosinophils # (Manual) 0.0 K/mm3 (0.0-0.4) 05/25/16 05:13 Basophils # (Manual) 0.0 K/mm3 (0.0-0.1) 05/25/16 05:13 Metamyelocytes # 0.0 K/mm3 05/25/16 05:13 Myelocytes # 0.0 K/mm3 05/25/16 05:13 Promyelocytes # 0.0 K/mm3 05/25/16 05:13 Blast Cells # 0.0 K/mm3 05/25/16 05:13 WBC Morphology Not Reportable 05/25/16 05:13 Hypersegmented Neuts Not Reportable 05/25/16 05:13 Hyposegmented Neuts Not Reportable 05/25/16 05:13 Hypogranular Neuts Not Reportable 05/25/16 05:13 Smudge Cells Not Reportable 05/25/16 05:13 Toxic Granulation Not Reportable 05/25/16 05:13 Toxic Vacuolation Rare 05/25/16 05:13 Dohle Bodies Not Reportable 05/25/16 05:13 Pelger-Huet Anomaly Not Reportable 05/25/16 05:13 Alonso Rods Not Reportable 05/25/16 05:13 Platelet Estimate Appears normal 05/25/16 05:13 Clumped Platelets Not Reportable 05/25/16 05:13 Plt Clumps, EDTA Not Reportable 05/25/16 05:13 Large Platelets Rare 05/25/16 05:13 Giant Platelets Not Reportable 05/25/16 05:13 Platelet Satelliting Not Reportable 05/25/16 05:13 Plt Morphology Comment Not Reportable 05/25/16 05:13 RBC Morphology Not Reportable 05/25/16 05:13 Dimorphic RBCs Not Reportable 05/25/16 05:13 Polychromasia Not Reportable 05/25/16 05:13 Hypochromasia Not Reportable 05/25/16 05:13 Poikilocytosis Not Reportable 05/25/16 05:13 Anisocytosis 1+ 05/25/16 05:13 Microcytosis Not Reportable 05/25/16 05:13 Macrocytosis Not Reportable 05/25/16 05:13 Spherocytes Not Reportable 05/25/16 05:13 Pappenheimer Bodies Not Reportable 05/25/16 05:13 Sickle Cells Not Reportable 05/25/16 05:13 Target Cells Not Reportable 05/25/16 05:13 Tear Drop Cells Not Reportable 05/25/16 05:13 Ovalocytes Not Reportable 05/25/16 05:13 Helmet Cells Not Reportable 05/25/16 05:13 Perez-[place] Bodies Not Reportable 05/25/16 05:13 Antelope Rings Not Reportable 05/25/16 05:13 Neo Cells Not Reportable 05/25/16 05:13 Bite Cells Not Reportable 05/25/16 05:13 Crenated Cell Not Reportable 05/25/16 05:13 Elliptocytes 1+ 05/25/16 05:13 Acanthocytes (Spur) Not Reportable 05/25/16 05:13 Rouleaux Not Reportable 05/25/16 05:13 Hemoglobin C Crystals Not Reportable 05/25/16 05:13 Schistocytes Not Reportable 05/25/16 05:13 Malaria parasites Not Reportable 05/25/16 05:13 Spencer Bodies Not Reportable 05/25/16 05:13 Hem Pathologist Commnt No 05/25/16 05:13 POC ABG pH 7.492 (7.35-7.45) H 05/25/16 19:25 POC ABG pCO2 46.5 (35-45) H 05/25/16 19:25 POC ABG pO2 44 (80-105) L 05/25/16 19:25 POC ABG HCO3 35.6 05/25/16 19:25 POC ABG Total CO2 37 05/25/16 19:25 POC ABG O2 Sat 83 05/25/16 19:25 POC ABG Base Excess 12 05/25/16 19:25 FiO2 21 % 05/25/16 19:25 Sodium 140 mmol/L (137-145) 05/25/16 05:13 Potassium 4.6 mmol/L (3.6-5.0) 05/25/16 05:13 Chloride 96.7 mmol/L (98-107) L 05/25/16 05:13 Carbon Dioxide 29 mmol/L (22-30) 05/25/16 05:13 Anion Gap 19 mmol/L 05/25/16 05:13 BUN 48 mg/dL (9-20) H 05/25/16 05:13 Creatinine 1.5 mg/dL (0.8-1.5) 05/25/16 05:13 Estimated GFR 55 ml/min 05/25/16 05:13 BUN/Creatinine Ratio 32.00 % 05/25/16 05:13 Glucose 212 mg/dL (75-100) H 05/25/16 05:13 POC Glucose 289 (70-105) H 05/26/16 12:00 Lactic Acid 1.1 mmol/L (0.7-2.0) 05/19/16 01:56 Calcium 8.8 mg/dL (8.4-10.2) 05/25/16 05:13 Total Creatine Kinase 253 units/L (55-170) H 05/19/16 13:28 CK-MB (CK-2) 2.0 ng/mL (0.0-4.0) 05/19/16 13:28 CK-MB (CK-2) Rel Index 0.7 (0-4) 05/19/16 13:28 Troponin T < 0.010 ng/mL (0.00-0.029) 05/19/16 13:28 NT-Pro-B Natriuret Pep 693.4 pg/mL (0-900) 05/19/16 01:56
[2016-05-26] MEDS: DELTASONE PO SCH (17:13)
[2016-05-27] MEDS: CITRATE OF MAGNESIA PO PRN (00:15)
[2016-05-27] MEDS: CARDIZEM PO SCH ×2 (06:22→14:04)
[2016-05-27] MEDS: ROBITUSSIN DM PO PRN (06:45)
[2016-05-27] MEDS: DUONEB 0.5 MG-3 MG/3 ML SOLN IH SCH ×2 (07:46→13:16)
[2016-05-27] MEDS: BROVANA NEBU IH SCH (08:00)
[2016-05-27] MEDS: NOVOLOG SUB-Q SCH ×3 (08:53→17:25)
[2016-05-27] MEDS: PRADAXA PO SCH (09:37)
[2016-05-27] MEDS: DELTASONE PO SCH (09:37)
[2016-05-27] MEDS: LASIX PO SCH (09:37)
[2016-05-27] MEDS: PROTONIX PO SCH (09:37)
--- NOTE | 2016-05-27 14:02 | Progress Note ---
Assessment and Plan - Patient Problems (1) Acute respiratory failure with hypoxemia Current Visit: Yes Status: Acute (2) Atrial fibrillation Current Visit: No Status: Acute Qualifiers: Atrial fibrillation type: chronic Qualified Code(s): I48.2 - Chronic atrial fibrillation Plan to address problem: Rate control of atrial fibrillation, Pradaxa for oral anticoagulation. (3) Coronary artery disease Current Visit: Yes Status: Acute Plan to address problem: Stable, status post prior three-way coronary artery bypass. (4) History of heart valve replacement with bioprosthetic valve Current Visit: Yes Status: Acute Plan to address problem: Bioprosthetic aortic valve replacement, stable. Subjective Date of service: 05/27/16 Principal diagnosis: COPD exacerbation Interval history: Patient is comfortable, he is expecting discharge home today. No cardiac complaints. Objective Vital Signs Temp Pulse Pulse Pulse Pulse Resp Resp 05/27/16 13:17 92 H 16 05/27/16 08:22 98.1 F 100 H 16 05/27/16 08:01 94 H 16 05/27/16 08:00 100 H 22 05/27/16 07:46 96 H 18 05/27/16 07:45 05/27/16 06:22 138 H 05/27/16 00:50 98.6 F 140 H 18 05/26/16 22:52 131 H 05/26/16 20:59 05/26/16 20:58 05/26/16 20:57 94 H 20 05/26/16 20:32 95 H 20 05/26/16 16:09 77 05/26/16 15:30 97.4 F L 77 22 05/26/16 14:36 86 16 05/26/16 14:00 84 16 BP BP Pulse Ox 05/27/16 13:17 05/27/16 08:22 124/76 94 05/27/16 08:01 05/27/16 08:00 05/27/16 07:46 05/27/16 07:45 92 05/27/16 06:22 141/99 05/27/16 00:50 121/81 87 05/26/16 22:52 131/90 05/26/16 20:59 93 05/26/16 20:58 94 05/26/16 20:57 05/26/16 20:32 05/26/16 16:09 125/80 05/26/16 15:30 125/80 95 05/26/16 14:36 05/26/16 14:00 - Physical Examination General: Appears Well, No Apparent Distress HEENT: Positive: PERRL Neck: Positive: neck supple Cardiac: Positive: Reg Rate and Rhythm, S1/S2, Systolic Murmur Lungs: Positive: Decreased Breath Sounds Neuro: Positive: Grossly Intact Abdomen: Positive: Soft, Active Bowel Sounds Skin: Positive: Clear Extremities: Absent: edema - Imaging and Cardiology EKG: image reviewed
[2016-05-27 14:04] VITALS: BP 122/81
== END 2016-05-27 18:10 | disposition home or self-care (01) | DRG 291 ==
LOC: ED 00:53 → 3A 03:13
PROVIDERS: ADMIT Internal Medicine; ATTEND Internal Medicine
PROC: 5A09457 Assistance with Respiratory Ventilation, 24-96 Consecutive Hours, Continuous Positive Airway Pressure (ICD-10-PCS; principal; 2016-05-17)
PROC: 4A033R1 Measurement of Arterial Saturation, Peripheral, Percutaneous Approach (ICD-10-PCS; 2016-05-19)
PROC: 4A033R1 Measurement of Arterial Saturation, Peripheral, Percutaneous Approach (ICD-10-PCS; 2016-05-20)
PROC: 4A033R1 Measurement of Arterial Saturation, Peripheral, Percutaneous Approach (ICD-10-PCS; 2016-05-23)
PROC: 4A033R1 Measurement of Arterial Saturation, Peripheral, Percutaneous Approach (ICD-10-PCS; 2016-05-25)
DX: I11.0 Hypertensive heart disease with heart failure (principal); J96.01 Acute respiratory failure with hypoxia; J96.02 Acute respiratory failure with hypercapnia; J44.1 Chronic obstructive pulmonary disease with (acute) exacerbation; I50.43 Acute on chronic combined systolic (congestive) and diastolic (congestive) heart failure; I48.2 Chronic atrial fibrillation; J45.909 Unspecified asthma, uncomplicated; M19.90 Unspecified osteoarthritis, unspecified site; D69.6 Thrombocytopenia, unspecified; I25.10 Atherosclerotic heart disease of native coronary artery without angina pectoris; M10.9 Gout, unspecified; E11.9 Type 2 diabetes mellitus without complications; G47.33 Obstructive sleep apnea (adult) (pediatric); E66.9 Obesity, unspecified; Z68.29 Body mass index [BMI] 29.0-29.9, adult; Z83.3 Family history of diabetes mellitus; Z79.01 Long term (current) use of anticoagulants; Z87.891 Personal history of nicotine dependence; Z95.1 Presence of aortocoronary bypass graft; Z95.2 Presence of prosthetic heart valve; Z79.82 Long term (current) use of aspirin; Z82.49 Family history of ischemic heart disease and other diseases of the circulatory system; Z98.890 Other specified postprocedural states
CPT/HCPCS: 36415; 36600; 71010; 80048; 82140; 82550; 82553; 82803; 82962; 83880; 84484; 85007; 85025; 93005; 93010; 94640; 94669; 94760; G8978-GP; G8979-GP; G8980-GP; G8987-GO; G8988-GO; J0456; J1815; J1940; J2930; J7050; J7512